=== PATIENT | male | born 1955 | race Caucasian/White ===

== ENCOUNTER 2016-04-29 15:05 | Inpatient (IN) ==
[2016-04-29] MEDS ORDERED: VANCOMYCIN 1 GM/NS 250 ML IV ONE (15:26)
--- NOTE | 2016-04-29 15:26 | PROVIDER DOCUMENTATION ---
HPI-General Adult - General Chief Complaint: Sores/Lesions Stated Complaint: bedsore/poss direct admit Time Seen by Provider: 04/29/16 15:11 Source: patient Allergies/Adverse Reactions: Patient Allergies Allergy/AdvReac Type Severity Reaction Status Date / Time morphine Allergy Unknown Verified 04/29/16 15:16 Home Medications: Hydrocodone/Acetaminophen [Cataumet 10-325 Tablet] 1 each PO TID 05/02/13 Methocarbamol [Robaxin-750] 750 mg PO TID 05/02/13 Trazodone [Desyrel] 100 mg PO QHS 04/05/14 Furosemide 1 tab PO DAILY 04/29/16 Potassium Chloride [Klor-Con 8] 1 tab PO DAILY 04/29/16 - History of Present Illness -Gen Adult Nature of Presenting Problems: patient is a 60 y/o M that presents to the ER per request of PCP for evaluation of bed sores for possible admission. 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 He is non-ambulatory. denies running fever/chills. Has drainage from site. He also has shortness of breath Location of Pain/Injury: reports: other (tailbone) Pain Radiation: reports: no radiation Quality of Pain: reports: dull Severity: reports: moderate Onset/Duration: reports: unsure Timing: reports: still present Context/Activities at Onset: reports: none Modifying Factors: improves with: nothing Associated Symptoms: reports: shortness of breath. denies: dizziness, EENT symptoms, fever/chills, genitourinary problems, nausea, vomiting Similar Symptoms Previously?: No Recently seen or treated by another doctor?: Yes Review of Systems - Adult - REVIEW OF SYSTEMS - ADULT Constitutional: denies: chills, fever Eyes: reports: no symptoms reported Ears, Nose, Mouth & Throat: reports: no symptoms reported Cardiovascular: denies: chest pain, edema, palpitations, syncope Respiratory: reports: shortness of breath. denies: cough, wheezing Gastrointestinal: denies: abdominal pain, diarrhea, nausea, vomiting Genitourinary: reports: no symptoms reported Musculoskeletal: denies: back pain, joint pain, neck pain Integumentary: reports: skin sores/ulcer. denies: rash Neurological: reports: no symptoms reported Psychiatric: reports: no symptoms reported Endocrine: reports: no symptoms reported Hematologic/Lymphatic: reports: no symptoms reported Allergic/Immunologic: reports: no symptoms reported All Other Systems: Reviewed and Negative Past History - Adult - PAST MEDICAL HISTORY-ADULT Review of Records: reports: Nursing Assessment Review, Medications Reviewed Cardiovascular: reports: CHF, HTN, ID Respiratory: reports: COPD Genitourinary: reports: other (indwelling nonsuprapubic cath) Musculoskeletal: reports: intervertebral disc disease, neck/back injury, other ( non ambulatory) Neurological: reports: Multiple Sclerosis, spinal cord/brain injury, other ( cervical issue) - PRIOR SURGERIES/PROCEDURES Surgical/Procedure History: reports: back/neck - IMMUNIZATION STATUS Childhood Immunizations: See Nurse Assessment Flu Vaccine: See Nurse Assessment - FAMILY HISTORY Family History: reviewed, not pertinent - SOCIAL HISTORY Smoking: non-smoker Living Situation: family Physical Exam-General - PHYSICAL EXAM-ADULT Exam Limited by: morbid obesity Initial Vital Signs Reviewed: Yes - CONSTITUTIONAL General Appearance: alert, no apparent distress, obese - EYES Eyes: PERRL/EOMI, pink conjunctivae - HEAD, EARS, NOSE, MOUTH & THROAT HENMT: normocephalic/atraumatic, moist mucous membranes, normal ENT inspection - NECK Neck: full range of motion, normal inspection - RESPIRATORY Respiratory: lungs clear, normal breath sounds, no respiratory distress, no accessory muscle use - CARDIOVASCULAR Cardiovascular: regular rate, rhythm, no edema, no murmur - GASTROINTESTINAL (ABDOMEN) Abdominal Exam: normal bowel sounds, non tender, soft, other (burt cath noted) - MUSCULOSKELETAL Back Exam: no vertebral tenderness, other (nephrectomy tube noted) Extremity: no pedal edema, normal capillary refill, pelvis stable - SKIN Integumentary: warm/dry, other (bedsore noted around nephrectomy opening, he has a large deep one to tailbone) - PSYCHIATRIC Psych/Mental Status: normal mood/affect, normal thought content, normal thought process, oriented x 3 Progress - PLAN OF CARE/RESULTS Progress/Plan/Lab Results: plan of care- labs , antibiotic Vital Signs Temp Pulse Resp BP Pulse Ox 04/29/16 15:11 97.3 F L 60 18 136/93 93 L morphine Allergy (Verified 04/29/16 15:16) Unknown Hydrocodone/Acetaminophen [Cataumet 10-325 Tablet] 1 each PO TID 05/02/13 Methocarbamol [Robaxin-750] 750 mg PO TID 05/02/13 Metoprolol [Lopressor] 25 mg PO BID #60 tablet 10/19/13 Trazodone [Desyrel] 100 mg PO QHS 04/05/14 Albuterol [Albuterol Neb] 2.5 mg INH [id number] PRN #0 neb 08/23/14 Cefuroxime Axetil [Ceftin] 500 mg PO BID #14 tablet 12/16/15 Furosemide 1 tab PO DAILY 04/29/16 Potassium Chloride [Klor-Con 8] 1 tab PO DAILY 04/29/16 Laboratory 04/29/16 04/29/16 04/29/16 15:40 15:35 15:35 WBC 9.12 RBC 5.40 Hgb 13.4 L Hct 44.4 MCV 82.2 MCH 24.8 L MCHC 30.2 L RDW Std Deviation 16.9 H Plt Count 290 MPV 11.2 H Immature Gran % (Auto) 0.2 Neut % (Auto) 74.9 Lymph % (Auto) 13.3 L Edmunds % (Auto) 7.9 Eos % (Auto) 3.5 Baso % (Auto) 0.2 Immature Gran # (Auto) 0.02 Neut # (Auto) 6.83 H Lymph # (Auto) 1.21 Edmunds # (Auto) 0.72 H Eos # (Auto) 0.32 Baso # (Auto) 0.02 Sodium Potassium Chloride Carbon Dioxide Anion Gap BUN Creatinine Estimated GFR/1.73 m2 BUN/Creatinine Ratio Glucose Calculated Osmolality Calcium Total Bilirubin AST ALT Alkaline Phosphatase Troponin T Wav-F-Ofkllvbmqwc Pept 631 H Total Protein Albumin Globulin Albumin/Globulin Ratio Plasma Lactate Urine Source CLEAN CATCH Urine Color YELLOW Urine Clarity SL. CLOUDY A Urine pH 7.0 Ur Specific Baxter 1.005 Urine Protein TRACE A Urine Ketones NEGATIVE Urine Blood 2+ A Urine Nitrite NEGATIVE Urine Bilirubin NEGATIVE Urine Urobilinogen NORMAL Urine Microscopic RBC 10-20 A Urine WBC 2+ A Urine Microscopic WBC TNTC A Ur Epithelial Cells <10 Urine Crystals NONE SEEN Urine Bacteria 2+ Urine Casts NONE SEEN Urine Yeast NONE SEEN Urine Glucose NEGATIVE 04/29/16 04/29/16 04/29/16 15:35 15:35 15:35 WBC RBC Hgb Hct MCV MCH MCHC RDW Std Deviation Plt Count MPV Immature Gran % (Auto) Neut % (Auto) Lymph % (Auto) Edmunds % (Auto) Eos % (Auto) Baso % (Auto) Immature Gran # (Auto) Neut # (Auto) Lymph # (Auto) Edmunds # (Auto) Eos # (Auto) Baso # (Auto) Sodium 142 Potassium 4.2 Chloride 105 Carbon Dioxide 28 Anion Gap 9 BUN 27 H Creatinine 1.7 H Estimated GFR/1.73 m2 42 BUN/Creatinine Ratio 16 Glucose 94 Calculated Osmolality 288 Calcium 8.6 L Total Bilirubin 0.40 AST 13 ALT 16 Alkaline Phosphatase 93 Troponin T 0.023 Eju-K-Xiaplfbyluh Pept Total Protein 8.2 Albumin 3.6 Globulin 5.0 Albumin/Globulin Ratio 1.0 Plasma Lactate 1.1 Urine Source Urine Color Urine Clarity Urine pH Ur Specific Baxter Urine Protein Urine Ketones Urine Blood Urine Nitrite Urine Bilirubin Urine Urobilinogen Urine Microscopic RBC Urine WBC Urine Microscopic WBC Ur Epithelial Cells Urine Crystals Urine Bacteria Urine Casts Urine Yeast Urine Glucose Orders Category Date Time Status BLOOD CULTURE [BLDCUL] Stat Lab 04/29/16 15:24 Ordered CBC WITH DIFF [HEME] Stat Lab 04/29/16 15:35 Completed COMPREHENSIVE METABOLIC PANEL [CHEM] Stat Lab 04/29/16 15:35 Completed LACTATE, PLASMA [CHEM] Stat Lab 04/29/16 15:35 Completed PRO B-NATRIURETIC PEPTIDE Stat Lab 04/29/16 15:35 Completed TROPONIN T Stat Lab 04/29/16 15:35 Completed UA [URINALYSIS PL W/POSS RFLX CULT] [URINALYSIS] Stat Lab 04/29/16 15:40 Completed URINE CULTURE [RM] Routine Lab 04/29/16 17:01 Ordered Levofloxacin 750 mg/D5w [Levaquin 750 mg/D5w] 150 ml Med 04/29/16 17:12 Active IV NOW Vancomycin 1 gm/Ns 250 ml Med 04/29/16 15:26 Discontinued IV NOW - CONSULTS/PCP/HOSPITALIST Notification #1 *Consult/PCP/Hospitalist*: ( hospice care consultant for hospitalist) Time Discussed: 17:24 Reason/Comments: decubitis ulcer, weakness, non-mobile Consult Disposition: Admit Departure - Departure Time of Disposition Order: 17:27 DIAGNOSIS: Weakness generalized, Renal insufficiency, mild Decubitus ulcer Qualifiers: Pressure ulcer location: buttock Pressure ulcer stage: unspecified pressure ulcer stage Laterality: unspecified laterality Qualified Code(s): L89.309 - Pressure ulcer of unspecified buttock, unspecified stage Urinary tract infection Qualifiers: Urinary tract infection type: acute cystitis Hematuria presence: with hematuria Qualified Code(s): N30.01 - Acute cystitis with hematuria Disposition: ADMITTED INPATIENT 09 Certified Medical Emergency: Emergent Condition: Stable Attestation - Scribe Verification/Attestation Scribe:: Miguel Erickson Acting as Scribe for:: Lane Lott Scribe documention review:: This chart was documented by a scribe and accurately reflects the service the provider performed and the decisions made by the provider.
[2016-04-29 16:12] LABS: MANUAL DIFF NEEDED? NO
[2016-04-29 16:17] LABS: BASO% 0.2 % (0.0-0.8); EOS# 0.32 X1000 (0.0-0.7); EOS% 3.5 % (0.0-10.0); HEMATOCRIT 44.4 % (42.0-52.0); HEMOGLOBIN 13.4 g/dL (14.0-18.0); IMM GRAN# 0.02 X1000 (0.0-0.04); IMM GRAN% 0.2 % (0.0-0.5); LYMPH# 1.21 X1000 (1.2-3.4); LYMPH% 13.3 % (20.5-51.1); MCH 24.8 PG (27-31); MCHC 30.2 g/dL (33-37); MCV 82.2 FL (81-99); MONO# 0.72 X1000 (0.11-0.59); MONO% 7.9 % (1.7-9.3); MPV 11.2 FL (7.4-10.4); NEUT% 74.9 % (42.2-75.2); PLT 290 X1000 (130-400)
[2016-04-29 16:25] LABS: URINE SOURCE CLEAN CATCH
[2016-04-29 16:39] LABS: ALBUMIN 3.6 g/dL (3.5-5.0); CALCIUM 8.6 mg/dL (8.8-10.2); POTASSIUM 4.2 mmol/L (3.5-5.1); TOTAL BILIRUBIN 0.4 mg/dL (0.20-1.00); TOTAL PROTEIN 8.2 g/dL (6.3-8.3)
[2016-04-29 16:39] LABS: BILIRUBIN URINE NEGATIVE (NEGATIVE); BLOOD URINE 2+ (NEGATIVE); CLARITY SL. CLOUDY (CLEAR); COLOR YELLOW; GLUCOSE URINE NEGATIVE (NEGATIVE); LEUKOCYTES URINE 2+ (NEGATIVE); NITRITE URINE NEGATIVE (NEGATIVE); PROTEIN URINE TRACE mg/dL (NEGATIVE); SP GRAVITY URINE 1.005; UROBILINOGEN URINE NORMAL
[2016-04-29 17:01] LABS: URINE CAST NONE SEEN /LPF; URINE CRYSTAL NONE SEEN /HPF; URINE CULTURE PL NEEDED? YES; URINE EPITHELIAL CELLS <10 /HPF (<10); URINE WBC TNTC /HPF (<10)
[2016-04-29] MEDS ORDERED: LEVAQUIN 750 MG/D5W 150 ML IV ONE (17:12)
[2016-04-29] MEDS ORDERED: VANCOMYCIN IV PER PHARMACY MISC SCH (19:00)
[2016-04-29] MEDS ORDERED: VANCOMYCIN 2,500 MG in NS 500 ML IV ONE (20:00)
[2016-04-29] MEDS ORDERED: VANCOMYCIN 1,500 MG in NS 250 ML IV ONE (20:00)
[2016-04-29] MEDS: NS 1,000 ML IV SCH (21:34)
[2016-04-29] MEDS: NORCO-10 PO SCH (21:38)
[2016-04-29] MEDS: DESYREL PO SCH (21:38)
[2016-04-29] MEDS: ROBAXIN PO SCH (21:42)
[2016-04-29] MEDS: LOPRESSOR PO SCH (21:45)
[2016-04-30] MEDS: NORCO-10 PO SCH ×3 (05:41→20:34)
[2016-04-30] MEDS: ROBAXIN PO SCH ×3 (05:41→20:34)
[2016-04-30 06:51] LABS: HEMATOCRIT 43.5 % (42.0-52.0); HEMOGLOBIN 12.8 g/dL (14.0-18.0); MCH 24.5 PG (27-31); MCHC 29.4 g/dL (33-37); MCV 83.2 FL (81-99); RBC 5.23 XMIL (4.7-6.1)
[2016-04-30 07:04] LABS: ALBUMIN 3.6 g/dL (3.5-5.0); CALCIUM 8.9 mg/dL (8.8-10.2); MAGNESIUM 2.2 mg/dL (1.5-2.7); POTASSIUM 4.4 mmol/L (3.5-5.1); TOTAL BILIRUBIN 0.5 mg/dL (0.20-1.00); TOTAL PROTEIN 7.9 g/dL (6.3-8.3)
[2016-04-30] MEDS ORDERED: NORCO-10 PO SCH (09:00)
[2016-04-30] MEDS ORDERED: ROBAXIN PO SCH (09:00)
[2016-04-30] MEDS: KLOR-CON PO SCH (10:03)
[2016-04-30] MEDS: LASIX PO SCH (10:03)
[2016-04-30] MEDS: LOVENOX SUBQ SCH (10:03)
[2016-04-30] MEDS: LOPRESSOR PO SCH ×2 (10:03→20:35)
[2016-04-30] MEDS: NS 1,000 ML IV SCH ×2 (10:04→20:35)
--- NOTE | 2016-04-30 11:39 | HISTORY AND PHYSICAL ---
PRIMARY CARE PHYSICIAN: Dr. Kulwant Oliveros. CHIEF COMPLAINT: Sacral decubitus. HISTORY OF PRESENT ILLNESS: This is a 60-year-old morbidly obese male who is well known to our service. He presented to the ER from Dr. Oliveros's for evaluation of sacral decubitus with possible cellulitis. He is paraplegic secondary to a spinal cord injury and he does have a long history of sacral decubitus ulcers. He is paraplegia secondary to a spinal cord injury. With that and his morbid obesity he does have a long history of sacral decubitus. He states over the last week he has had some serous and serosanguineous drainage from the sacral area. He denies any purulent drainage, any fever or chills or foul odor from the drainage. He states over the last few days he has had some increasing shortness of breath with no cough or increased in edema. 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 PAST SURGICAL HISTORY: 1. Neck surgery. 2. Attempt at suprapubic placement. 3. Left nephrostomy. ALLERGIES: Morphine which causes an unknown reaction. HOME MEDICATIONS: Trazodone 100 at bedtime, Lopressor 25 b.i.d., Robaxin 750 t.i.d., [place] 10/325 1 t.i.d., albuterol nebs 4 times a day, Klor-Con 8 1 tab daily, furosemide 1 tab daily. REVIEW OF SYSTEMS: A 14 point review of systems is discussed with patient with pertinent positives stated in HPI. He denied chest pain, palpitations, syncope, dizziness, nausea, vomiting, diarrhea, constipation, black or bloody vomitus, black or bloody stools, fever, chills. DIAGNOSTICS: Labs WBC is 9.12 with hemoglobin 13.4, hematocrit 44.4, platelets of 290,000. Sodium is 142, potassium 4.2, BUN 27, creatinine 1.7 with a glucose of 94. ProBNP of 631. Clean- catch urine reveals too numerous to count microscopic white blood cells, 10-20 microscopic red blood cells with 2+ bacteria. ASSESSMENT AND PLAN: 1. Sacral decubitus with cellulitis. 2. History of diastolic heart failure with EF of 55% in November 2014. 3. Paraplegia secondary to spinal cord injury. 4. Neurogenic bladder secondary to paraplegia, spinal cord injury. 5. Morbid obesity. 6. History of atrial fibrillation. 7. History of DVT. 8. Chronic kidney disease looks like with a creatinine that has been it looks like 1.9 to 3.2 over the last year. PLAN: 1. To be admitted to the hospital. We will obtain cultures if there is any drainage to the sacral decubitus. He was given Levaquin and vancomycin in the emergency room. We will continue these with pharmacy dosing of vancomycin due to his chronic kidney disease. We will identify and continue his home medications as appropriate. We will consult Wound Care for his sacral decubitus as well as his left nephrostomy site. 2. Of note the patient does have chronic Urinary tract infections with chronic hematuria. Last infections were with Proteus and Pseudomonas. Cultures were obtained in the emergency room. We will follow. The patient is most likely colonized. As long as he does not have a fever or elevated white count we will add no further antibiotics as he will already be on vancomycin and Levaquin. Further treatments pending hospital course. Dictated by MARY Singh for Benoit Cordoba MD
[2016-04-30] MEDS: DESYREL PO SCH (20:33)
[2016-04-30] MEDS: VANCOMYCIN 2,000 MG in NS 500 ML IV SCH (20:35)
[2016-05-01] MEDS: NORCO-10 PO SCH ×3 (04:51→21:01)
[2016-05-01] MEDS: ROBAXIN PO SCH ×3 (04:51→21:00)
--- NOTE | 2016-05-01 09:01 | PROGRESS NOTE ---
DATE: 04/30/2016 SUBJECTIVE: The patient denies any current new complaints. Denies any chest pain, palpitations. Denies any GI or issues. PHYSICAL: Vital Signs: Temperature 98.2, pulse 82, respiratory 18. BP 98/55 to 142/71. General: Patient well developed, well nourished. Currently in no respiratory distress. He is awake, alert, oriented. Neck: Supple. Abdomen: He is morbidly obese. Extremities: Patient does move extremities although he is extremely weak. LABS: CBC normal. CMP with a creatinine of 1.6, which is his chronic baseline. ASSESSMENT: 1. Morbid obesity. 2. Sacral decubitus with cellulitis. Culture still pending. 3. Known diastolic heart failure with an ejection fraction of 55% in November of 2014. 4. Paraplegia, secondary to spinal cord injury. 5. Neurogenic bladder secondary to the spinal cord injury. 6. Morbid obesity. 7. Chronic renal disease, he is currently at his baseline. 8. Presumed urinary tract infection. Patient has an indwelling catheter. Currently has too- [id number] white cells, and 10-20 microscopic RBCs. Cultures still pending.
[2016-05-01] MEDS: LOVENOX SUBQ SCH (09:40)
[2016-05-01] MEDS: LOPRESSOR PO SCH ×2 (09:40→21:00)
[2016-05-01] MEDS: KLOR-CON PO SCH (09:40)
[2016-05-01] MEDS: LASIX PO SCH (09:40)
[2016-05-01] MEDS: NS 1,000 ML IV SCH (13:01)
--- NOTE | 2016-05-01 16:52 | PROGRESS NOTE ---
DATE: 05/01/2016 SUBJECTIVE: The patient complains of a cough. He denies chest pain, palpitations, any shortness of breath, fever or chills, any GI or issues. OBJECTIVE: Vital Signs: Blood pressure is 134/71 with a heart rate of 64, respirations are 18, temperature is 98.5 degrees oral with room air saturations of 94%. Cardiovascular: Regular rate and rhythm. S1 and S2 are appreciated. Pulmonary: Breath sounds are diminished with no increased work of breathing noted. Gastrointestinal: Abdomen is soft, nontender, nondistended with bowel sounds in all 4 quadrants. Neurologic: He is alert and oriented x3. MICROBIOLOGY: Urine cultures from left nephrostomy, as well as voided, have revealed gram- negative rods. ASSESSMENT: 1. Morbid obesity. 2. Sacral decubitus with cellulitis. Culture still pending. 3. Known diastolic heart failure with ejection fraction of 55% in November 2014. 4. Paraplegia secondary to spinal cord injury. 5. Neurogenic bladder secondary to spinal cord injury. 6. Morbid obesity. 7. Chronic kidney disease, currently at baseline. 8. Presumed urinary tract infection. Cultures are growing gram-negative rods at present. Cultures are from voided, as well as left nephrostomy site. Of note, the patient does have known stones, and he does have a history of chronic Proteus, as well as Pseudomonas and Citrobacter urinary tract infections with our cultures going back to May 2013 with stones. Of course these are nidus for infection. This is to be expected. PLAN: We will continue with his current regimen. We will continue with vancomycin for antibiotic coverage. Once sensitivities return, then antibiotics may be changed as appropriate. Dictated by MARY Singh for Benoit Cordoba MD
[2016-05-01] MEDS: VANCOMYCIN 2,000 MG in NS 500 ML IV SCH (21:00)
[2016-05-01] MEDS: DESYREL PO SCH (21:00)
[2016-05-02] MEDS: NS 1,000 ML IV SCH ×2 (02:12→15:35)
[2016-05-02] MEDS: ROBAXIN PO SCH ×3 (05:03→20:50)
[2016-05-02] MEDS: NORCO-10 PO SCH ×3 (05:04→20:49)
[2016-05-02 06:03] LABS: HEMATOCRIT 39.7 % (42.0-52.0); HEMOGLOBIN 11.5 g/dL (14.0-18.0); MCH 24.2 PG (27-31); MCV 83.6 FL (81-99); MPV 10.8 FL (7.4-10.4); RBC 4.75 XMIL (4.7-6.1)
[2016-05-02 06:15] LABS: CALCIUM 8.2 mg/dL (8.8-10.2); POTASSIUM 3.8 mmol/L (3.5-5.1)
[2016-05-02] MEDS: LOPRESSOR PO SCH ×2 (08:46→20:50)
[2016-05-02] MEDS: LASIX PO SCH (08:46)
[2016-05-02] MEDS: KLOR-CON PO SCH (08:46)
[2016-05-02] MEDS: LOVENOX SUBQ SCH (08:46)
--- NOTE | 2016-05-02 11:29 | PROGRESS NOTE ---
DATE: 05/02/2016 SUBJECTIVE: The patient is without new complaints. Denies any chest pain or palpitations. OBJECTIVE: Vital Signs: Temperature 98 degrees, pulse 75, respiratory rate 18, BP 135/61, saturation 92% on room air. General: The patient is a morbidly obese male who currently is in no respiratory distress. He is lying in bed. He is awake, alert. Neck: Supple. CV: Regular rate. Chest: Clear, although distant secondary to his body habitus. Abdomen: Soft, morbidly obese. Extremities: He moves his upper extremities well. Has lower extremity paralysis. Labs: UA grows Proteus and Citrobacter, both of which he has chronic colonization. ASSESSMENT: 1. Urinalysis, growing Citrobacter and Proteus with chronic colonization. The patient is asymptomatic. He is afebrile. His white count is stable. Therefore, we will not treat. 2. Sacral decubitus. We will continue the vancomycin today. We will attempt to get home health, wound therapy, etc., set up in the morning. 3. Paraplegia secondary to spinal cord injury. 4. Morbid obesity. 5. History of deep venous thrombosis. 6. Chronic renal failure. Serum creatinine appears to be his baseline. Although it is slightly elevated today compared to yesterday, we will recheck in the morning.
[2016-05-02] MEDS ORDERED: BENADRYL PO ONE (17:49)
[2016-05-02] MEDS ORDERED: ZANTAC PO ONE (17:49)
[2016-05-02] MEDS: ZYRTEC PO SCH (18:03)
[2016-05-02] MEDS: DESYREL PO SCH (20:49)
[2016-05-03] MEDS: ALBUTEROL NEB INH PRN ×3 (03:29→19:25)
[2016-05-03] MEDS: NS 1,000 ML IV SCH ×3 (04:29→17:32)
[2016-05-03] MEDS: ROBAXIN PO SCH ×2 (05:03→13:16)
[2016-05-03] MEDS: NORCO-10 PO SCH ×5 (05:03→21:00)
[2016-05-03 06:10] LABS: HEMATOCRIT 38.8 % (42.0-52.0); MCH 24.4 PG (27-31); MCHC 28.4 g/dL (33-37); MCV 86.2 FL (81-99); MPV 10.8 FL (7.4-10.4); RBC 4.5 XMIL (4.7-6.1)
[2016-05-03 06:32] LABS: ALBUMIN 3.1 g/dL (3.5-5.0); CALCIUM 8.3 mg/dL (8.8-10.2); MAGNESIUM 2.1 mg/dL (1.5-2.7); POTASSIUM 4.3 mmol/L (3.5-5.1); TOTAL BILIRUBIN 0.5 mg/dL (0.20-1.00); TOTAL PROTEIN 6.8 g/dL (6.3-8.3)
--- NOTE | 2016-05-03 08:56 | PROGRESS NOTE ---
DATE: 05/03/2016 SUBJECTIVE: Patient without any complaints. He states that he was confused yesterday and he thinks it was because his oxygen level so low that it caused him to have confusion; however, his oxygen was checked at 91 and 92%. OBJECTIVE: Vital signs: Temperature 98 degrees, pulse 74, respiratory 16, BP 144/83. General: The patient is well-developed, obese male who is in no respiratory distress presently. He is awake, alert, oriented. Neck: Supple. CV: Regular rate. Chest: Relatively clear. Abdomen: Soft, obese. ASSESSMENT: 1. Sacral decubitus. This is chronic. We will consult wound therapy today. Patient has been on vancomycin. He has had no fevers. We will stop vancomycin at this point as his cultures have been negative. 2. 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 His urine this time grew both; therefore, the antibiotics have been stopped. 3. Morbid obesity. PLAN: Uncertain if the patient is capable of caring for herself at home. He certainly should consider rehab versus an LTAC facility. We will stop his antibiotics today, recheck his labs in the a.m., and follow. Hopefully home in the next 1-2 days.
[2016-05-03] MEDS: LOVENOX SUBQ SCH (09:20)
[2016-05-03] MEDS: LASIX PO SCH (09:20)
[2016-05-03] MEDS: LOPRESSOR PO SCH ×2 (09:20→21:31)
[2016-05-03] MEDS: KLOR-CON PO SCH (09:20)
[2016-05-03] MEDS: ZYRTEC PO SCH (09:20)
[2016-05-03] MEDS: DESYREL PO SCH (21:31)
[2016-05-03] MEDS: ROBITUSSIN-DM PO PRN (21:37)
[2016-05-04] MEDS: ROBAXIN PO SCH ×4 (00:50→20:14)
[2016-05-04] MEDS: ROBITUSSIN-DM PO PRN ×3 (01:46→16:35)
[2016-05-04] MEDS: ALBUTEROL NEB INH PRN ×2 (03:28→15:11)
[2016-05-04] MEDS: NORCO-10 PO SCH ×3 (05:09→20:14)
[2016-05-04 06:22] LABS: HEMATOCRIT 38.2 % (42.0-52.0); HEMOGLOBIN 11.2 g/dL (14.0-18.0); MCH 24.6 PG (27-31); MCHC 29.3 g/dL (33-37); MPV 11.3 FL (7.4-10.4); RBC 4.55 XMIL (4.7-6.1)
[2016-05-04 06:39] LABS: ALBUMIN 3.2 g/dL (3.5-5.0); CALCIUM 8.6 mg/dL (8.8-10.2); POTASSIUM 3.9 mmol/L (3.5-5.1); TOTAL BILIRUBIN 0.7 mg/dL (0.20-1.00); TOTAL PROTEIN 7.1 g/dL (6.3-8.3)
[2016-05-04] MEDS: NS 1,000 ML IV SCH ×3 (06:46→16:35)
[2016-05-04] MEDS: ZYRTEC PO SCH (08:52)
[2016-05-04] MEDS: LOVENOX SUBQ SCH (08:52)
[2016-05-04] MEDS: LOPRESSOR PO SCH ×2 (08:53→20:14)
[2016-05-04] MEDS: KLOR-CON PO SCH (08:53)
[2016-05-04] MEDS: LASIX PO SCH (08:53)
--- NOTE | 2016-05-04 17:46 | PROGRESS NOTE ---
DATE: 05/04/2016 SUBJECTIVE: Patient has no focal complaints. OBJECTIVE: Vital signs: Blood pressure 155/102, heart rate 66, respiratory rate 18, temperature 98.4 degrees. Cardiovascular: Regular rate and rhythm. Pulmonary: Bilateral breath sounds. Occasional rhonchi and wheezing. GI: Soft, nontender, nondistended. Bowel sounds are positive. LABORATORY DATA: White count is normal. Creatinine of 1.6. PROBLEM LIST: 1. Decubitus. Continue wound care. 2. Chronic colonization. Clinically there is no evidence of infection. 3. Morbid obesity. Continue to monitor. 4. Pulmonary: He did have some desaturation. He does sound rhonchorous. He has not had a chest x-ray since he has been here, so we will go ahead and evaluate that before we progress with taking him off anything. He is on Lasix. Repeat his labs tomorrow and follow. 5. Disposition: Attempted to place in LTAC, but appears to be stable. Continue to follow.
[2016-05-04] MEDS: DESYREL PO SCH (20:14)
[2016-05-05] MEDS: ROBAXIN PO SCH (05:14)
[2016-05-05] MEDS: NORCO-10 PO SCH ×2 (05:14→09:37)
[2016-05-05 06:16] LABS: HEMATOCRIT 42.1 % (42.0-52.0); HEMOGLOBIN 11.8 g/dL (14.0-18.0); MCH 23.9 PG (27-31); MCV 85.2 FL (81-99); MPV 11.2 FL (7.4-10.4); RBC 4.94 XMIL (4.7-6.1)
[2016-05-05] MEDS: ALBUTEROL NEB INH PRN (07:46)
[2016-05-05 07:55] LABS: CALCIUM 8.9 mg/dL (8.8-10.2); POTASSIUM 4.4 mmol/L (3.5-5.1)
--- NOTE | 2016-05-05 07:57 | Diag Imaging Result Document ---
PROCEDURE NAME: CHEST-PORTABLE - 05/04/2016 PORTABLE CHEST: COMPARISON: 06/19/2015. FINDINGS: There is cardiomegaly. There is limited detail at the bases due to artifact from skin fold. There is mild prominence of infrahilar markings on the left. There is a possible small right pleural effusion. There is no dense consolidation, gross vascular congestion, or pneumothorax identified. IMPRESSION: Cardiomegaly. Mild prominence of left infrahilar markings. Possible small right pleural effusion. These findings may relate to slight congestive heart failure.
[2016-05-05] MEDS: LOVENOX SUBQ SCH (08:16)
[2016-05-05] MEDS: LASIX PO SCH (08:16)
[2016-05-05] MEDS: LOPRESSOR PO SCH (08:16)
[2016-05-05] MEDS: ZYRTEC PO SCH (08:17)
[2016-05-05] MEDS: KLOR-CON PO SCH (08:17)
[2016-05-05] MEDS: ZOFRAN IV PRN (08:38)
[2016-05-05] MEDS: NEO-SYNEPHRINE 50 MG in NS 250 ML IV SCH ×4 (12:00→17:24)
[2016-05-05] MEDS ORDERED: NARCAN ONE (12:03)
[2016-05-05] MEDS ORDERED: NARCAN IV ONE (12:04)
[2016-05-05] MEDS ORDERED: QUELICIN ONE (12:10)
[2016-05-05] MEDS ORDERED: AMIDATE ONE ×2 (12:11→12:46)
[2016-05-05] MEDS ORDERED: AMIDATE IV ONE (12:15)
[2016-05-05] MEDS ORDERED: QUELICIN IV ONE (12:16)
[2016-05-05] MEDS ORDERED: ATIVAN IV ONE (12:25)
[2016-05-05] MEDS ORDERED: ATIVAN ONE (12:36)
[2016-05-05] MEDS ORDERED: DILAUDID IV PRN (12:55)
[2016-05-05] MEDS ORDERED: ATIVAN 20 MG in NS 190 ML IV SCH ×5 (13:00→15:06)
[2016-05-05] MEDS ORDERED: CARDIZEM 100 MG/NS 100 ML IV SCH (13:00)
[2016-05-05 13:03] LABS: BE 1.1 mmoll (-3.0-3.0); BLOOD TYPE ARTERIAL; METHB 1.3 % (0.0-1.5); O2(CT) 17.2 mL/dL (15.0-23.0); PO2(98.6) 91 mmHg (60-100); SAMPLE BLOOD; SAO2 97.5 % (95.0-100.0)
--- NOTE | 2016-05-05 13:08 | Diag Imaging Result Document ---
PROCEDURE NAME: CHEST-PORTABLE - 05/05/2016 AP PORTABLE CHEST: TIME: 1227 hours. FINDINGS: There is an NG tube which appears to pass below the diaphragm. There is an endotracheal tube with its tip approximately 3 cm above the valentin. Inspiration is somewhat suboptimal. There is atelectasis in the lingula. There is cardiomegaly and mild interstitial pulmonary edema. IMPRESSION: NG tube in stomach.
[2016-05-05 13:30] LABS: HEMATOCRIT 42.4 % (42.0-52.0); HEMOGLOBIN 11.9 g/dL (14.0-18.0); MCH 24.5 PG (27-31); MCHC 28.1 g/dL (33-37); MCV 87.4 FL (81-99); MPV 11.7 FL (7.4-10.4); RBC 4.85 XMIL (4.7-6.1)
[2016-05-05 13:34] LABS: CALCIUM 8.9 mg/dL (8.8-10.2); POTASSIUM 4.7 mmol/L (3.5-5.1)
--- NOTE | 2016-05-05 13:35 | EKG Report ---
Test Performed on : 05/05/2016 12:46:30 PM Test Reason : a-vib Blood Pressure : / mmHG Vent. Rate : 105 BPM Atrial Rate : 120 BPM P-R Int : 000 ms QRS Dur : 100 ms QT Int : 330 ms P-R-T Axes : 000 101 027 degrees QTc Int : 436 ms Atrial fibrillation. with rapid ventricular response. Possible Right ventricular hypertrophy Abnormal ECG When compared with ECG of 11-JUN-2015 08:16, Nonspecific T wave abnormality, improved in Inferior leads Nonspecific T wave abnormality, improved in Anterior leads Confirmed by Noel Malik MD ([id number]) on 05/26/2016 9:59:05 PM
[2016-05-05 13:37] LABS: PCO2(98.6) 103 mmHg (35-45); pH(98.6) 7.12 (7.35-7.45)
[2016-05-05 13:38] LABS: ALLEN TEST YES; DRAW SITE R RADIAL; MODALITY AMBU BAG
[2016-05-05] MEDS: LASIX IV SCH (13:52)
[2016-05-05 14:39] LABS: BLOOD TYPE ARTERIAL; DRAW SITE L RADIAL; METHB 1.1 % (0.0-1.5); O2(CT) 16.6 mL/dL (15.0-23.0); PO2(98.6) 124 mmHg (60-100); SAMPLE BLOOD; SAO2 99.4 % (95.0-100.0); SRATE 14 BPM; THB 12.2 g/dL (11.5-17.4); TVOL 650 mL; pH(98.6) 7.31 (7.35-7.45)
[2016-05-05 14:43] LABS: ALLEN TEST YES; MODALITY VENTILATOR; PCO2(98.6) 61 mmHg (35-45)
[2016-05-05] MEDS: SODIUM CHLORIDE 0.9% INJ SCH (14:52)
[2016-05-05] MEDS: PROTONIX IV SCH (14:52)
--- NOTE | 2016-05-05 14:54 | PROGRESS NOTE ---
DATE: 05/05/2016 TIME SPENT: This is a critical care note, over an hour. SUBJECTIVE: Called to see patient. CAT call was called right before noon, at 11:45. The patient was unresponsive. Also, breathing very shallow. Also just unresponsive essentially and essentially apneic. Blood sugars around 160, blood pressure 140. His initial O2 saturations were 60%. He was placed on a monitor. Was found to be in atrial fibrillation with rapid ventricular response. At least tachycardic in the 1 teens to 120s which no history per se of atrial fibrillation. He was bagged, mechanically ventilated, but did not respond. We gave him 0.8 Narcan. Did not have much response. He did open his eyes and would track, but he would not follow commands and he was not breathing regularly. In order to protect his airway and because of his hypoxic and hypercapnic respiratory failure, we went ahead and intubated him. Note is recorded separately. Patient had to be put on fluids and subsequently stabilized. We had to start Sarbjit-Synephrine to maintain blood pressure because his blood pressure dropped into the 80s systolic. He was in atrial fibrillation with rapid ventricular response, so we started low-dose Cardizem as well. PROBLEM LIST: 1. Acute hypoxic hypercapnic respiratory failure secondary to pulmonary edema versus other. Patient clinically not feel he had flash pulmonary edema. He may have had a hypercapnic event related to narcotics and respiratory failure. We will continue to follow. 2. Atrial fibrillation with rapid ventricular response. Continue Cardizem and monitor. I think he will need long-term anticoagulation and we will establish that prior to discharge. 3. Decubitus ulcer. We will continue wound care and follow. 4. Chronic urinary tract infection colonization. We will continue to monitor. Again, greater than an hour critical care time associated with acute hypercapnic and hypoxic respiratory failure. He is now on a mechanical ventilator. Will adjust accordingly.
[2016-05-05] MEDS: DIPRIVAN 1% 100 ML IV SCH ×3 (15:10→23:00)
--- NOTE | 2016-05-05 15:12 | OPERATIVE NOTE ---
PROCEDURE DATE: 05/05/2016 PROCEDURE: Tracheal intubation. INDICATION: Respiratory failure. Altered mental status. The patient developed apnea. He did improve with bag ventilation. However, his mental status was very poor. He was not breathing regularly on his own. He was not responding to commands. He was intubated for airway protection. DESCRIPTION OF PROCEDURE: I initially tried to intubate without sedation but patient was struggling, so he was given 40 mg of etomidate and 100 mg of succinylcholine. Very difficult to intubate because his neck could not be hyperextended due to previous, I believe, cervical neck fusion. We were able pass the laryngoscope and visualize the edge of his vocal cords. An ET tube 7.5 was passed and good color change. Condensation in the tube. Bilateral breath sounds confirmed. Chest x-ray confirmed ET tube passed the clavicle and above valentin. Dr. Servin was present because there was a concern over complication with the procedure.
--- NOTE | 2016-05-05 17:10 | Diag Imaging Result Document ---
PROCEDURE NAME: HEAD W/O CONTRAST - 05/05/2016 CT HEAD WITHOUT CONTRAST: COMPARISON: None available. FINDINGS: There is patchy low attenuation in the periventricular and subcortical white matter suggesting [id number] microangiopathy. There is no definite acute infarct given the limited sensitivity of CT versus MRI. There is no discrete intracranial mass, mass effect, or intracranial hemorrhage. There is an air-fluid level in the right maxillary sinus, likely related to intubation. Surrounding soft tissues and bony structures are essentially unremarkable, otherwise. IMPRESSION: Mild to moderate chronic-appearing white matter changes as described, but no evidence of acute intracranial pathology.
[2016-05-05] MEDS: CARDIZEM NG SCH ×2 (17:25→22:24)
[2016-05-05] MEDS ORDERED: ASPIRIN PO STA (18:47)
--- NOTE | 2016-05-05 19:05 | EKG Report ---
Test Performed on : 05/05/2016 6:53:08 PM Test Reason : nstemi Blood Pressure : / mmHG Vent. Rate : 063 BPM Atrial Rate : 141 BPM P-R Int : 000 ms QRS Dur : 088 ms QT Int : 394 ms P-R-T Axes : 000 090 077 degrees QTc Int : 403 ms Atrial fibrillation. Rightward axis Abnormal ECG When compared with ECG of 05-MAY-2016 12:46, (Unconfirmed) Vent. rate has decreased BY 42 BPM Non-specific change in ST segment in Inferior leads Confirmed by Noel Malik MD ([id number]) on 05/26/2016 9:58:19 PM
[2016-05-05] MEDS: XOPENEX NEB INH PRN ×2 (20:42→23:24)
[2016-05-06] MEDS: LASIX IV SCH ×2 (00:55→15:21)
[2016-05-06] MEDS: NEO-SYNEPHRINE 50 MG in NS 250 ML IV SCH ×2 (00:55→01:24)
[2016-05-06] MEDS: DIPRIVAN 1% 100 ML IV SCH ×9 (03:00→21:29)
[2016-05-06] MEDS: XOPENEX NEB INH PRN ×3 (03:45→15:41)
[2016-05-06] MEDS: CARDIZEM NG SCH ×2 (04:14→09:48)
[2016-05-06 05:48] LABS: BE 8.5 mmoll (-3.0-3.0); BLOOD TYPE ARTERIAL; DRAW SITE R RADIAL; METHB 0.9 % (0.0-1.5); O2(CT) 15.4 mL/dL (15.0-23.0); PCO2(98.6) 38 mmHg (35-45); PO2(98.6) 115 mmHg (60-100); SAMPLE BLOOD; SAO2 99.3 % (95.0-100.0); SRATE 16 BPM; THB 11.2 g/dL (11.5-17.4); TVOL 650 mL; pH(98.6) 7.53 (7.35-7.45)
[2016-05-06 05:51] LABS: ALLEN TEST YES; MODALITY VENTILATOR
[2016-05-06 06:21] LABS: HEMATOCRIT 36.4 % (42.0-52.0); HEMOGLOBIN 10.4 g/dL (14.0-18.0); MCH 23.5 PG (27-31); MCHC 28.6 g/dL (33-37); MCV 82.2 FL (81-99); MPV 11.3 FL (7.4-10.4); RBC 4.43 XMIL (4.7-6.1)
[2016-05-06 06:26] LABS: CALCIUM 8.6 mg/dL (8.8-10.2); POTASSIUM 3.8 mmol/L (3.5-5.1)
[2016-05-06] MEDS ORDERED: NEO-SYNEPHRINE 50 MG in NS 250 ML IV PRN (06:37)
--- NOTE | 2016-05-06 09:17 | Diag Imaging Result Document ---
PROCEDURE NAME: CHEST-PORTABLE - 05/06/2016 AP RADIOGRAPH OF THE CHEST: COMPARISON: 05/05/2016. FINDINGS: ET tube is in stable position. There is an NG tube that projects below the diaphragm and is assumed to be in the stomach. There is probably a small right pleural effusion with adjacent atelectasis and/or infiltrate. Atelectasis at the left lung base appears to have improved. No new consolidations are identified otherwise. Cardiac silhouette is stable. IMPRESSION: Suggestion of a small effusion at the right lung base with adjacent atelectasis and/or infiltrate and improvement in atelectasis at the left lung base.
[2016-05-06 09:46] LABS: BE 9.8 mmoll (-3.0-3.0); BLOOD TYPE ARTERIAL; DRAW SITE L RADIAL; METHB 1.1 % (0.0-1.5); PCO2(98.6) 46 mmHg (35-45); PO2(98.6) 90 mmHg (60-100); SAMPLE BLOOD; SAO2 99.1 % (95.0-100.0); SRATE 12 BPM; THB 8.8 g/dL (11.5-17.4); TVOL 650 mL; pH(98.6) 7.48 (7.35-7.45)
[2016-05-06 09:51] LABS: ALLEN TEST YES; MODALITY VENTILATOR
[2016-05-06] MEDS: LOVENOX SUBQ SCH (09:55)
[2016-05-06] MEDS: HEPARIN 25,000 UNITS/D5W 250 ML IV SCH ×3 (11:04→21:30)
[2016-05-06] MEDS ORDERED: DOPAMINE 800 MG/D5W (PARKWAY ONLY!) 250 ML IV SCH (11:30)
--- NOTE | 2016-05-06 12:00 | EKG Report ---
Test Performed on : 05/06/2016 11:23:30 AM Test Reason : bradycardia Blood Pressure : / mmHG Vent. Rate : 049 BPM Atrial Rate : 044 BPM P-R Int : 000 ms QRS Dur : 092 ms QT Int : 530 ms P-R-T Axes : 000 089 -71 degrees QTc Int : 478 ms Atrial fibrillation. with slow ventricular response. ST & T wave abnormality, consider anterior ischemia Prolonged QT Abnormal ECG When compared with ECG of 05-MAY-2016 18:53, (Unconfirmed) Non-specific change in ST segment in Inferior leads T wave inversion now evident in Inferior leads T wave inversion more evident in Anterior leads QT has lengthened Confirmed by Noel Malik MD ([id number]) on 05/26/2016 9:56:55 PM
--- NOTE | 2016-05-06 12:18 | PROGRESS NOTE ---
DATE: 05/06/2016 SUBJECTIVE: The patient is intubated and sedated. OBJECTIVE: Vital signs: Blood pressure 105/56, heart rate is 64, respiratory rate 12, temperature 97.9 degrees, 96% on 35%. Cardiovascular: Regular rate and rhythm. Pulmonary: Bilateral breath sounds. Clear to auscultation. Rales at the bases. GI: Soft, nontender, nondistended. Bowel sounds are positive. LABORATORY DATA: Hemoglobin and hematocrit 10 and 36. Chemistries: Creatinine 2.1. Troponin peak was 0.116 with a normal CK so MB was not run. Blood gas this morning, pH 7.48, pCO2 46, PaO2 of 90; that is on 40%. Chest x-ray still shows interstitial edema, right pleural effusion. Head CT was unremarkable. EKG this morning because he had an episode of bradycardia shows slow atrial fibrillation or atrial fibrillation with slow response and T-wave inversions now in V1 through V3 which were not present previously. PROBLEM LIST: 1. Acute respiratory failure secondary to acute hypercapnia, possibly from a primary cardiac event or primary thromboembolic event. He is on the vent. Weaning O2 nicely. CO2 has also corrected. We will pursue daily vent weaning protocols. Pulmonary has been consulted; awaiting recommendations. 2. Left lower extremity deep vein thrombosis. He has had a history of DVT in the past but it has been over 2 years and he is not currently on any anticoagulation. That may be related to bleeding issues; it is unclear at this point. But with his high risk, sedentary lifestyle related to his partial paraplegia, I think long-term anticoagulation is recommended and I am also concerned he may have had a PE. Prohibitive from getting a CTA at this time because of renal dysfunction. Will get a V/Q scan when he is stable. 3. Elevated cardiac enzymes with initially atrial fibrillation with rapid ventricular response. Now he is developing bradycardia despite no medications. We had him on Cardizem briefly yesterday but now he became more bradycardic. He is on propofol and it may be affecting heart rate and blood pressure. However, pursuing echocardiogram, repeating his cardiac enzymes, and awaiting cardiology recommendations. He is being anticoagulated. I think he needs to be on daily aspirin at this point. Elevation in troponin may simply be due to possible VTE but now with T-wave inversions, concern for other processes. So again, we are waiting cardiology evaluation. I am going to continue diuresis because he does have interstitial edema. 4. Chronic renal failure. Appears to be stable. Will monitor with renal dysfunction. Strict I's and O's. 5. Urinary tract infection. He has a chronic indwelling nephrostomy from kidney stones. He is not amenable to surgery at this point, so we are going to continue monitor. At this point there is no evidence of infection. DISPOSITION: Pending his multiple issues. CRITICAL CARE TIME: Greater than 30 minute critical care time for respiratory failure, atrial fibrillation, hypotension. We are being able to take him off blood pressure medicines at this point.
--- NOTE | 2016-05-06 14:39 | EKG Report ---
Test Performed on : 05/06/2016 1:28:28 PM Test Reason : NSTEMI Blood Pressure : / mmHG Vent. Rate : 072 BPM Atrial Rate : 220 BPM P-R Int : 000 ms QRS Dur : 088 ms QT Int : 432 ms P-R-T Axes : 000 084 -81 degrees QTc Int : [address] & T wave abnormality, consider inferior ischemia ST & T wave abnormality, consider anterior ischemia Prolonged QT Abnormal ECG When compared with ECG of 06-MAY-2016 11:23, (Unconfirmed) No significant change was found Confirmed by Noel Malik MD ([id number]) on 05/26/2016 9:56:21 PM
--- NOTE | 2016-05-06 14:50 | CONSULTATION ---
DATE OF CONSULTATION: 05/06/2016 INDICATION: Elevated cardiac enzymes and abnormal EKG. HISTORY OF PRESENT ILLNESS: Mr. Jaffe is a 60-year-old morbidly obese white male. He has had multiple admissions to the hospital previously. He presented to the ER on the from his primary care physician's office for evaluation of sacral decubitus with possible cellulitis. The patient is paraplegic with previous spinal cord injury and has a long history of sacral decubital ulcers. Apparently the patient had issues yesterday on the floor where he went nonresponsive and had some issues with hypotension. He had a CAT call and was ultimately intubated. He was brought over to the ICU and was placed on Sarbjit-Synephrine. Since that time, he has had cardiac enzymes checked as well as EKGs. His cardiac enzymes are mildly elevated. The patient is currently sedated and intubated. He is not responsive to any physical stimulation. PAST MEDICAL HISTORY: 1. Significant for hypertension. 2. Chronic atrial fibrillation. 3. DVT. 4. COPD. 5. History of diastolic heart failure. 6. Chronic kidney disease. Baseline creatinine seems to be in the high ones to low 2s. 7. 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 8. Neurogenic bladder. 9. History of nephrolithiasis. SOCIAL HISTORY: No current tobacco or alcohol use. FAMILY HISTORY: Unable to be obtained secondary to the patient's current intubated and sedated status. REVIEW OF SYSTEMS: Unable to be obtained secondary to patient's current intubated status. PHYSICAL EXAMINATION: He is afebrile. Heart rates seem to be in the 60s. His most recent blood pressure is 91/57. His systolics seem to be primarily in the 90s to 110s. His O2 saturation is 94%. Heart rate 60s to 70s. General: No acute distress. Again he is sedated. HEENT: Oropharynx is moist. Poor dentition. Eye examination shows pink conjunctivae, white sclerae. Neck: Examination shows no obvious thyromegaly or thyroid tenderness. Cardiovascular: He sounds to be in a regular rate and rhythm. He has no obvious murmurs. He has no S3. No lower extremity edema. Chest: Clear to auscultation bilaterally. He has no increased work of breathing. Mechanical breath sounds are heard throughout. Abdomen: Soft, nontender, nondistended. No obvious organomegaly. Skin Exam: Warm and dry throughout. No obvious rashes. Patient could not be turned presently. Psychiatric and Neurologic: Unable to be performed secondary to the patient's current intubated status. PERTINENT DATA: CT the head performed yesterday shows mild to moderate chronic appearing white matter changes. No evidence of acute intracranial pathology. His chest x-ray today showed suggestion of a small effusion at the right lung base with adjacent atelectasis and/or infiltrate. His laboratory data shows white count is 6, hematocrit 36.4, platelet count 245,000. His ABG shows pH 7.4, a pCO2 46, PO2 of 90. That is on an FiO2 of 40%. His sodium is 145, potassium 3.8, BUN 25, creatinine 2.1. Notably on the , he had a BUN and creatinine of 17 and 1.6. He did have cardiac enzymes that were checked yesterday. Peak of 0.116. CKs are normal. He had EKGs performed. Initial on the at 18:53 shows atrial fibrillation, rate of 63 beats per minute. No signs of ischemic changes or acute infarct. Subsequent EKG today at 11:23 shows what appears to be atrial fibrillation and he has somewhat symmetric T-wave inversions noted in the V2 and V3 concerning for possible ischemia. ASSESSMENT: 1. Paraplegia with sacral decubitus ulcers. 2. Suggestion of a non-ST elevation [place] with abnormal EKG suggestive of possible ischemic focus. 3. Chronic kidney disease. 4. Morbid obesity. PLAN: We will review the patient's echocardiogram to evaluate for possible wall motion abnormalities. Notably this patient has had extremely difficult echoes in the past on multiple occasions secondary to his morbid obesity. Not entirely certain that study will be significantly helpful but we will review regardless. I agree with heparin as currently being administered. We will initiate aspirin if not already on. The patient is somewhat hypotensive presently.
[2016-05-06] MEDS: PROTONIX IV SCH (15:21)
[2016-05-06] MEDS: SODIUM CHLORIDE 0.9% INJ SCH (15:21)
--- NOTE | 2016-05-06 16:47 | ECHO REPORT ---
ORDER DATE: 05/06/2016 Technically suboptimal study. This is a 2D echocardiogram. Very poor parasternal windows. Measurements could not accurately be obtained. MEASUREMENTS: 1. Aortic valve leaflets not well visualized. Pulmonic valve not well visualized. Mitral valve was normal. Tricuspid valve was normal. 2. Normal left ventricular cavity size. Estimated ejection fraction of 55%-60%. Doppler studies revealed peak velocity across the aortic valve less than 2 m/sec. There is no aortic stenosis or regurgitation. 3. There is trace mitral regurgitation, mild tricuspid regurgitation. 4. Peak velocity across the tricuspid valve was 3 m/sec. Pulmonary artery systolic pressure of 46 mmHg. 5. There is no pericardial effusion. No obvious intracardiac mass or thrombus seen. Technically suboptimal study. Very poor acoustic.
[2016-05-06] MEDS ORDERED: HEPARIN IV ONE (19:00)
[2016-05-07] MEDS: DIPRIVAN 1% 100 ML IV SCH ×4 (00:12→06:43)
[2016-05-07] MEDS: LASIX IV SCH ×2 (01:05→13:23)
[2016-05-07] MEDS: XOPENEX NEB INH PRN ×6 (02:35→23:34)
--- NOTE | 2016-05-07 04:14 | CONSULTATION ---
DATE OF CONSULTATION: 05/06/2016 ATTENDING PHYSICIAN: Dr. Poole. REASON FOR CONSULTATION: Respiratory failure. CHIEF COMPLAINT: Unresponsiveness. HISTORY OF PRESENTING ILLNESS: Please note that most of the history is obtained from the records as well as from ICU nurse, since patient is intubated and sedated. Mr. Jaffe is a 60-year-old, obese white male with past medical history of hypertension, atrial fibrillation, DVT history of paraplegia secondary to previous spinal cord injury, neurogenic bladder, chronic kidney disease and kidney stones, who was admitted on 04/29/2015 for possible cellulitis and infection of the sacral decubitus. Patient apparently was on the floor, receiving antibiotics. He was noted to be unresponsive. A stat ABG was performed, and the patient was noted to have hypercapnic respiratory failure. He was emergently intubated and placed in the ICU. He was also noted to be hypotensive and has been Sarbjit-Synephrine since then. He is currently on assist control with tidal volume of 600, respiratory rate of 12, PEEP of 5, at 40% FiO2 on propofol drip. History is negative for any fevers. The rest of the review of systems is not available since patient is intubated. PAST MEDICAL HISTORY: As per the HPI. SOCIAL HISTORY: No history of smoking or alcohol use. Family history unable to obtain since patient is intubated. PHYSICAL EXAMINATION: Blood pressure noted to be 91/57. Oxygen saturation is noted to be 94% on 40% FiO2. Heart rate is in the 70s, temperature afebrile.General: Patient is in mild respiratory distress. Heart: S1, S2 heard. Lungs: Clear air entry bilaterally. Abdomen: Soft. Extremities: No edema. EMERGENCY PHYSICIAN: Unable to assess since patient is intubated. LABS: His last ABG showed pH of 7.4, pCO2 of 46, PO2 of 490. Sodium 145, potassium 3.8. Chloride 107, bicarb 29, BUN 25, creatinine 2.1. Troponin is 0.116. CBC: White count is 6.08, hemoglobin is 10.4, hematocrit 36.4, platelet count is 245,000. Urine analysis from 04/29/2016 showed Citrobacter koseri and Proteus mirabilis. Sputum culture has been negative so far. Blood cultures have been negative so far. MEDICATIONS: 1. Aspirin 2. Phenylephrine 3. Lasix 4. Dilaudid 5. Xopenex 6. Protonix. DIAGNOSTIC DATA: Chest x-ray which was performed on 05/06/2016 showed ET tube in stable position. Small effusion in the right lung base with adjacent atelectasis noted. Initially ABG showed pH of 7.12, pCO2 103, PO2 91, bicarb is 25, on non-rebreather mask. ASSESSMENT: 1. Acute hypercapnic respiratory failure. Etiology unclear. 2. Ventilator dependency. 3. Sepsis. 4. Bac-[id number] myocardial infarction. 5. Infected sacral decubitus. PLAN: 1. Acute hypercapnic respiratory failure. I reviewed the repeat ABG after intubation. The pH has been within normal limits. Continue current managed assist control. Recommend CPAP trial in the morning after weaning off sedation. We will plan for extubation if patient is able to perform CPAP trial. 2. Ventilator dependency. Plan as above. 3. Sepsis. Continue broad-spectrum antibiotics. Follow up cultures. 4. NSTEMI. Management as per Cardiology. Echocardiogram has been ordered. 5. Infected sacral decubitus. Continue antibiotic management as per primary care. Thank you for allowing me to take care of the patient. We will continue to monitor patient in ICU while he is intubated.
[2016-05-07 06:00] LABS: BE 8.7 mmoll (-3.0-3.0); BLOOD TYPE ARTERIAL; METHB 1.2 % (0.0-1.5); O2(CT) 15.4 mL/dL (15.0-23.0); PO2(98.6) 79 mmHg (60-100); SAMPLE BLOOD; SAO2 97.1 % (95.0-100.0); SRATE 12 BPM; THB 11.6 g/dL (11.5-17.4); TVOL 600 mL; pH(98.6) 7.43 (7.35-7.45)
[2016-05-07 06:07] LABS: DRAW SITE L RADIAL
[2016-05-07 06:08] LABS: ALLEN TEST YES; MODALITY VENTILATOR; PCO2(98.6) 52 mmHg (35-45)
--- NOTE | 2016-05-07 06:23 | EKG Report ---
Test Performed on : 05/07/2016 05:40:48 AM Test Reason : NSTEMI Blood Pressure : / mmHG Vent. Rate : 082 BPM Atrial Rate : 312 BPM P-R Int : 000 ms QRS Dur : 094 ms QT Int : 460 ms P-R-T Axes : 000 065 -75 degrees QTc Int : [address] & T wave abnormality, consider inferior ischemia ST & T wave abnormality, consider anterolateral ischemia Prolonged QT Abnormal ECG When compared with ECG of 06-MAY-2016 13:28, (Unconfirmed) QT has lengthened Confirmed by Noel Malik MD ([id number]) on 05/26/2016 9:53:28 PM
[2016-05-07 06:25] LABS: HEMATOCRIT 37.5 % (42.0-52.0); HEMOGLOBIN 11.1 g/dL (14.0-18.0); MCH 24.2 PG (27-31); MCHC 29.6 g/dL (33-37); MCV 81.9 FL (81-99); MPV 11.6 FL (7.4-10.4); RBC 4.58 XMIL (4.7-6.1)
[2016-05-07 06:36] LABS: CALCIUM 8.6 mg/dL (8.8-10.2); POTASSIUM 3.1 mmol/L (3.5-5.1)
[2016-05-07] MEDS: HEPARIN 25,000 UNITS/D5W 250 ML IV SCH ×3 (06:43→17:44)
--- NOTE | 2016-05-07 07:12 | Extremity Venous Study ---
PROCEDURE NAME: Venous U/S Bilateral Legs - 05/06/2016 BILATERAL LOWER EXTREMITY VENOUS DOPPLER: COMPARISON: None available. FINDINGS: There is no discrete filling defect involving the right lower extremity deep venous system. There is normal Doppler flow and compressibility involving the deep venous system on the right. There is no discrete filling defects identified in the left common femoral vein. Thrombus is seen in a posterior tibial vein and peroneal vein on the left. The popliteal vein appears to be patent on the left. There appears to be thrombus in the proximal and mid superficial femoral vein on the left. There also appears to be thrombus in the left lesser saphenous vein distally. IMPRESSION: 1. Evidence of deep venous thrombosis in the left superficial femoral vein, posterior tibial vein, and peroneal vein. 2. Evidence of superficial thrombosis in the distal lesser saphenous vein on the left. 3. No evidence of deep venous thrombosis on the right.
--- NOTE | 2016-05-07 07:25 | Diag Imaging Result Document ---
PROCEDURE NAME: CHEST-PORTABLE - 05/07/2016 PORTABLE CHEST: COMPARISON: 05/06/2016. FINDINGS: The endotracheal tube remains in good position. A nasogastric tube overlies the esophagus and stomach. The heart remains enlarged. There is a small right pleural effusion. Increased markings in the lung bases are similar to the prior exam. The upper and mid lungs remain clear. IMPRESSION: Stable chest.
[2016-05-07 08:48] LABS: BE 5.9 mmoll (-3.0-3.0); BLOOD TYPE ARTERIAL; DRAW SITE L BRACHIAL; METHB 1.3 % (0.0-1.5); O2(CT) 16.6 mL/dL (15.0-23.0); PO2(98.6) 75 mmHg (60-100); SAMPLE BLOOD; SAO2 95.8 % (95.0-100.0); THB 12.7 g/dL (11.5-17.4); pH(98.6) 7.32 (7.35-7.45)
[2016-05-07 08:53] LABS: MODALITY VENTILATOR
[2016-05-07 08:54] LABS: ALLEN TEST YES
[2016-05-07 08:57] LABS: PCO2(98.6) 66 mmHg (35-45)
[2016-05-07] MEDS ORDERED: LEVAQUIN 750 MG/D5W 150 ML IV SCH (11:15)
[2016-05-07] MEDS ORDERED: LEVAQUIN 750 MG in NS 150 ML IV SCH (11:15)
[2016-05-07] MEDS: ASPIRIN PO SCH (11:20)
[2016-05-07] MEDS: MAXIPIME 2 GM/NS 100 ML IV SCH (12:13)
[2016-05-07] MEDS ORDERED: HALDOL IV PRN (12:46)
--- NOTE | 2016-05-07 13:16 | EKG Report ---
Test Performed on : 05/07/2016 1:01:40 PM Test Reason : irregular rhythm Blood Pressure : / mmHG Vent. Rate : 104 BPM Atrial Rate : 102 BPM P-R Int : 000 ms QRS Dur : 090 ms QT Int : 328 ms P-R-T Axes : 000 087 -81 degrees QTc Int : 431 ms Atrial fibrillation. with rapid ventricular response. ST & T wave abnormality, consider inferior ischemia ST & T wave abnormality, consider anterior ischemia Abnormal ECG When compared with ECG of 07-MAY-2016 05:40, (Unconfirmed) QT has shortened Confirmed by Noel Malik MD ([id number]) on 05/26/2016 9:53:03 PM
[2016-05-07] MEDS: ATIVAN IV PRN ×2 (13:50→19:50)
[2016-05-07] MEDS: PROTONIX IV SCH (13:51)
--- NOTE | 2016-05-07 14:59 | PROGRESS NOTE ---
DATE: 05/07/2016 CHIEF COMPLAINT: Shortness of breath, chest discomfort. SUBJECTIVE: Mr. Jaffe was extubated this morning. He has been complaining of some chest discomfort. His EKGs for the past 24 hours have shown T-wave inversion in the precordial leads, V1, V2, V3, with less impressive changes in the more lateral precordial leads. He had slight elevation of troponin at the time of initial presentation. His troponin went up to 0.108 and 0.116 later. They have dropped to 0.066. His CPK was all negative throughout four different samples. His proBNP level was 631 at the time of initial presentation over a week ago, about four times baseline. His renal function has deteriorated. His creatinine is about 2.0; maximum was 2.2 but is coming down to 2.0. The patient at this time is feeling very weak. He has had intermittent chest discomfort. OBJECTIVE: Vital signs: Blood pressure is 149/70, temperature of 98.9, pulse 109, respirations 28. General: He is awake, follows commands. HEENT: Unremarkable. Chest: Chest is relatively clear to auscultation and percussion. Heart sounds are irregularly irregular without gallop or murmur. Abdomen: Obese, nontender. Extremities: Extremities show good pulses. No edema. Neurological exam: He has profound weakness in the legs and also weakness in both upper extremities. ADDITIONAL BLOOD WORK: Sodium today is 142, potassium 3.1. BUN is 28. His white count is 6310, hemoglobin 11.1. His chest x-ray today was reported as showing enlargement of the heart, increased marking at the lung amrtinez. Upper lungs remain clear. IMPRESSION: 1. Patient who presented with suspected infected decubitus ulcer. 2. Patient developed respiratory failure, hypercarbic, with severe acidosis. He had to be intubated for acute respiratory failure and he has been successfully extubated after two or three days of being on the ventilator. 3. Diastolic heart failure. 4. Gram-negative bronchitis/pneumonia. He also has positive urine cultures. 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 5. Persistent atrial fibrillation. 6. History of hypertension. 7. Neurogenic bladder .status post paraplegic-quadriplegic spinal cord injury, cervical spine level. RECOMMENDATIONS: At this point in time, I will consider obtaining a CT of the chest to have a panoramic view of the heart. That may help in deciding if he has significant coronary calcifications or aortic dissection that may explain his chest pain. I do suspect that the reason for his present chest pain is mostly related to possible pulmonary embolism. We cannot use contrast safely because of his renal dysfunction. A ventilation/perfusion scan may be attempted for that purpose; however, we do have a positive venous ultrasound indicating that there is a blood clot in the left superficial femoral vein, and for that matter, the likelihood of pulmonary embolism is extremely high, especially given his presentation with respiratory failure, chest pain, dynamic ECG changes in the right precordial leads. Further intervention will depend on his clinical course; however, for the time being, I would suggest to continue IV anticoagulation as you are doing with heparin and eventually switch over to Lovenox twice a day and further down the road once he is absolutely stable, consider one of the new oral anticoagulation agents, and my preference in this particular case may be to put him on Eliquis since it might be safer. Thank you very much for the opportunity to participate in his evaluation. JUAN
--- NOTE | 2016-05-07 17:42 | Diag Imaging Result Document ---
PROCEDURE NAME: CT THORAX W/O CONTRAST - 05/07/2016 CT SCAN OF THE THORAX WITHOUT CONTRAST: INDICATION: Shortness of breath, respiratory failure. Widened mediastinum. FINDINGS: There is mediastinal lipomatosis. No evidence for mediastinal mass or hematoma. There are calcified hilar lymph nodes. There is atherosclerotic calcification within the aortic arch. There is cardiomegaly. There may be some mild diffuse narrowing of the mainstem bronchi, possibly from mass effect of the heart. There is pulmonary vascular congestion and atelectasis within the right middle lobe and both lung bases. There may be trace effusions. No significant pericardial fluid is appreciated. No evidence for aortic aneurysm. IMPRESSION: 1. Mediastinal lipomatosis. No evidence for mediastinal hematoma, aneurysm or mass. 2. Cardiomegaly. There may be some mass effect upon the mainstem bronchi producing apparent mild narrowing in the AP projection. 3. Bibasilar consolidation and right middle lobe consolidation consistent with atelectasis or pneumonia. 4. Pulmonary vascular congestion, right greater than left. 5. Evidence of previous granulomatous disease. [facility]
[2016-05-07] MEDS: ZOFRAN IV PRN (17:43)
[2016-05-08] MEDS: HEPARIN 25,000 UNITS/D5W 250 ML IV SCH ×4 (02:05→15:56)
[2016-05-08] MEDS: LASIX IV SCH ×2 (02:05→13:27)
[2016-05-08] MEDS: MAXIPIME 2 GM/NS 100 ML IV SCH ×2 (02:05→13:45)
[2016-05-08] MEDS: ATIVAN IV PRN (03:05)
[2016-05-08] MEDS: XOPENEX NEB INH PRN ×4 (03:43→20:34)
[2016-05-08 05:51] LABS: HEMATOCRIT 40.7 % (42.0-52.0); HEMOGLOBIN 11.9 g/dL (14.0-18.0); MCH 24.2 PG (27-31); MCHC 29.2 g/dL (33-37); MCV 82.7 FL (81-99); MPV 11.5 FL (7.4-10.4); RBC 4.92 XMIL (4.7-6.1)
[2016-05-08 06:10] LABS: CALCIUM 8.7 mg/dL (8.8-10.2); POTASSIUM 3.4 mmol/L (3.5-5.1)
[2016-05-08 08:56] LABS: BE 11.5 mmoll (-3.0-3.0); BLOOD TYPE ARTERIAL; DRAW SITE L RADIAL; METHB 1.4 % (0.0-1.5); O2(CT) 17.9 mL/dL (15.0-23.0); PO2(98.6) 112 mmHg (60-100); SAMPLE BLOOD; SAO2 98.5 % (95.0-100.0); THB 13.3 g/dL (11.5-17.4); pH(98.6) 7.35 (7.35-7.45)
[2016-05-08 08:59] LABS: ALLEN TEST YES; MODALITY VENTIMASK; PCO2(98.6) 73 mmHg (35-45)
[2016-05-08] MEDS: ZOFRAN IV PRN ×2 (09:41→13:27)
[2016-05-08] MEDS: ASPIRIN PO SCH (11:20)
[2016-05-08] MEDS ORDERED: COUMADIN PO ONE (11:58)
[2016-05-08 14:39] LABS: INR 1.12 (0.86-1.15); PROTIME 14.7 Seconds (12.1-15.5)
--- NOTE | 2016-05-08 15:06 | PROGRESS NOTE ---
DATE: 05/08/2016 SUBJECTIVE: Patient is much more awake and alert. OBJECTIVE: Blood pressure 171/76, heart rate of 88, respiratory rate 20, temperature 96.8 degrees, 97% on 40%.Cardiovascular: Regular rate and rhythm. Pulmonary: Bilateral breath sounds. Clear to auscultation. GI: Soft, nontender, nondistended. Bowel sounds are positive. LABORATORY DATA: Potassium 3.4, BUN and creatinine 23 and 1.9, hemoglobin and hematocrit 11 and 40, platelets I think are normal. PROBLEM LIST: 1. Acute respiratory failure secondary to obesity hypoventilation syndrome and probable pulmonary embolus. We are weaning off oxygen. I do think he will need BiPAP at night and as needed and I think he probably will need it snf. 2. DVT, presumed PE. He has got a large clot in his left leg. He is currently on heparin. We will initiate Coumadin in him because of his weight. I am not sure really how well the other direct thrombin inhibitors will work. The Coumadin, we can at least monitor his INR. 3. He is too large to get a V/Q scan here or at [facility]. He is too wide to fit in the entry port and then he is too overweight to lay on the V/Q scan machine. 4. Pulmonary edema, CHF exacerbation. We will continue diuresis and monitor his kidney function closely. DISPOSITION: Is still somewhat up in the air because he has Medicaid and no benefits. I do think he would benefit from rehab for some other issues but we will go from there.
[2016-05-08] MEDS: PROTONIX IV SCH (15:56)
[2016-05-08] MEDS: SODIUM CHLORIDE 0.9% INJ SCH (15:56)
[2016-05-08] MEDS ORDERED: BENADRYL IV ONE (20:10)
[2016-05-08] MEDS ORDERED: SOLU-MEDROL IV ONE (20:49)
[2016-05-09] MEDS: HEPARIN 25,000 UNITS/D5W 250 ML IV SCH ×4 (00:17→23:28)
[2016-05-09] MEDS: LASIX IV SCH ×2 (00:19→12:40)
[2016-05-09] MEDS: MAXIPIME 2 GM/NS 100 ML IV SCH ×2 (00:19→12:23)
--- NOTE | 2016-05-09 03:50 | PROGRESS NOTE ---
DATE: 05/08/2016 SUBJECTIVE: Patient seen and examined this afternoon. Appeared to be in mild respiratory distress. Had a Ventimask placed on him, 40%. Denies any fever but complains of overall fatigue, shortness of breath. No cough noted. PHYSICAL EXAMINATION: Vital Signs: Blood pressure 171/76, heart rate is 88, respiratory rate is 20, temperature 96 degrees, oxygen saturation 97% on 40%. Cardiac: S1, S2 heard. Lungs: Breath sounds present, clear bilaterally. Abdomen: Soft. Extremities: No edema. [employer]: No confusion. LABS: WBC count is 5.6, hemoglobin 11.9, hematocrit 40,000, platelet count is 239,000. The last ABG post extubation early this morning, ABG was 7.35, pCO2 is 73, PO2 is 112, bicarb is 33 on 50% Ventimask. Chemistry: Sodium 146, potassium 3.4, chloride 102, bicarb is 33, BUN 23, creatinine 1.9. The sputum culture shows Pseudomonas. ASSESSMENT AND PLAN: 1. Hypoxic, hypercapnic respiratory failure. 2. Deep venous thrombosis with possible pulmonary embolism. 3. Urinary tract infection. 4. Pulmonary edema. PLAN: 1. Reviewed ABG of the patient done this morning. The pH has normalized. However, the pCO2 has remained significantly elevated at 73. We will consider Diamox if her CO2 and bicarb remain elevated. Continue supportive care. Wean off oxygen to keep saturation between 88-72. 2. Deep venous thrombosis and presumed PE. Currently on heparin. Coumadin to be started soon. 3. For pulmonary edema, patient's renal function is monitored. Continue diuresis. 4. Discussed with the patient's sister at the bedside. The patient will need outpatient sleep study with end-tidal CO2 monitoring to assess for severity of sleep apnea and discuss further management and plan. We will also try to discontinue Ventimask and place patient on nasal cannula or high flow. Continue to follow for now.
[2016-05-09 06:35] LABS: HEMATOCRIT 41.3 % (42.0-52.0); HEMOGLOBIN 12.1 g/dL (14.0-18.0); MCH 24.2 PG (27-31); MCHC 29.3 g/dL (33-37); MCV 82.4 FL (81-99); MPV 11.5 FL (7.4-10.4); RBC 5.01 XMIL (4.7-6.1)
[2016-05-09 06:50] LABS: INR 1.14 (0.86-1.15); PROTIME 14.9 Seconds (12.1-15.5)
[2016-05-09 07:04] LABS: PTT PL 73.4 Seconds (22.6-43.9)
[2016-05-09 07:17] LABS: CALCIUM 9.3 mg/dL (8.8-10.2); POTASSIUM 3.7 mmol/L (3.5-5.1)
[2016-05-09] MEDS: XOPENEX NEB INH PRN ×2 (07:59→12:36)
[2016-05-09] MEDS: ASPIRIN PO SCH (10:36)
[2016-05-09] MEDS: SODIUM CHLORIDE 0.9% INJ SCH (16:37)
[2016-05-09] MEDS: PROTONIX IV SCH (16:37)
[2016-05-09] MEDS: IMODIUM PO PRN (16:44)
[2016-05-09] MEDS ORDERED: ZOSYN 2.25 GM/NS 50 ML IV SCH (19:15)
[2016-05-09] MEDS ORDERED: COUMADIN PO SCH (21:00)
[2016-05-09] MEDS: ZOSYN 3.375 GM/NS 50 ML IV SCH (23:31)
[2016-05-10] MEDS: LASIX IV SCH ×2 (01:32→13:47)
[2016-05-10] MEDS: ZOSYN 3.375 GM/NS 50 ML IV SCH ×4 (01:32→19:52)
[2016-05-10 07:01] LABS: HEMATOCRIT 40.9 % (42.0-52.0); HEMOGLOBIN 11.8 g/dL (14.0-18.0); MCHC 28.9 g/dL (33-37); MCV 83.3 FL (81-99); MPV 11.6 FL (7.4-10.4); RBC 4.91 XMIL (4.7-6.1)
[2016-05-10 07:12] LABS: CALCIUM 8.6 mg/dL (8.8-10.2); POTASSIUM 2.9 mmol/L (3.5-5.1)
[2016-05-10 07:21] LABS: INR 1.39 (0.86-1.15); PROTIME 17.3 Seconds (12.1-15.5)
[2016-05-10 07:23] LABS: PTT PL 83.6 Seconds (22.6-43.9)
[2016-05-10 08:23] LABS: BE 12.1 mmoll (-3.0-3.0); BLOOD TYPE ARTERIAL; METHB 1.1 % (0.0-1.5); O2(CT) 16.3 mL/dL (15.0-23.0); PO2(98.6) 58 mmHg (60-100); SAMPLE BLOOD; SAO2 92.9 % (95.0-100.0); THB 12.9 g/dL (11.5-17.4); pH(98.6) 7.41 (7.35-7.45)
[2016-05-10] MEDS: XOPENEX NEB INH PRN ×3 (08:32→15:22)
[2016-05-10 08:40] LABS: MODALITY CANNULA; PCO2(98.6) 62 mmHg (35-45)
[2016-05-10 08:41] LABS: ALLEN TEST YES; DRAW SITE R RADIAL
[2016-05-10] MEDS: ASPIRIN PO SCH (09:20)
--- NOTE | 2016-05-10 10:51 | Diag Imaging Result Document ---
PROCEDURE NAME: CHEST-PORTABLE - 05/10/2016 PORTABLE CHEST: Compared with 05/07/2016. FINDINGS: The endotracheal tube and nasogastric tube have been removed. Heart size appears mildly enlarged and stable. There has been interval decrease in basilar opacities. Infrahilar markings on the left remain mildly prominent. The upper lungs appear clear. There is possibly residual small right pleural effusion. There is no pneumothorax seen. IMPRESSION: Decrease in basilar opacities. Some residual prominence of left infrahilar markings. Possible residual small right pleural effusion.
[2016-05-10] MEDS: POTASSIUM CHLORIDE 20 MEQ/SWI 100 ML IV SCH ×2 (10:53→19:00)
[2016-05-10] MEDS: PRILOSEC PO SCH (13:58)
[2016-05-10] MEDS ORDERED: KLOR-CON PO ONE (14:32)
[2016-05-10] MEDS ORDERED: NS 500 ML ONE (15:58)
--- NOTE | 2016-05-10 18:45 | PROGRESS NOTE ---
DATE: 05/10/2016 SUBJECTIVE: The patient is more awake and alert with no complaints at present. OBJECTIVE: Vital Signs: Blood pressure is 110/63 with a heart rate of 80. Temperature is 98.1 degrees oral with oxygen saturation of 96-97% on 2 L nasal cannula. Cardiovascular: Regular rate and rhythm. S1 and S2 appreciated. Pulmonary: Breath sounds are distant, but they are clear. Chest rises and falls symmetrically with respiration. No increased work of breathing noted. Gastrointestinal: Abdomen is large, soft, nontender, nondistended, with bowel sounds in all 4 quadrants. Neurologic: He is alert and oriented x3. LABS: WBC is 7.2 with hemoglobin 11.8, hematocrit 40.9, and platelets of 219,000. Sodium is 140, potassium 2.9, chloride 96, CO2 36, with a BUN of 27, creatinine of 2, and glucose of 106. PROBLEM LIST: 1. Acute respiratory failure secondary to obesity and hypoventilation syndrome. Probable pulmonary embolus. His sats are staying 94-97 on 2 L nasal cannula. We will continue. 2. Deep vein thrombosis. Presumed pulmonary embolus. He does have a large clot in his left leg. He is currently on Heparin. Warfarin was started yesterday. We will transition over to only warfarin. 3. Presumed pulmonary embolus. We were unable to get a V/Q scan due to the patient's body habitus, weight, as well as width feeding through the entry port. We are unable to get a CT scan due to his creatinine as well as his width. We will continue with pulmonary support, as well as anticoagulation. 4. Pulmonary edema. We will continue with diuresis. Supplemental oxygen. 5. Chronic heart failure exacerbation, diastolic. As stated before, we will continue with diuresis and his current regimen. Cardiology is following. 6. Paraplegia with sacral decubitus ulcers. We will continue with his current regimen and wound care. 7. History of atrial fibrillation. He has had some episodes of atrial fibrillation. As stated before, cardiology is following. We will continue with his anticoagulation. 8. Chronic kidney disease. Creatinine has been stable at the 1.6-2 range which is his norm. We will continue to follow and renal dose any medications. 9. Chronic urinary tract infection with chronic hematuria. He does have known renal stones, having bilateral staghorn with a large right 2 cm ureteropelvic junction, as well as the left ureteropelvic junction and a 4 cm distal left ureteral stone. This is managed with the left nephrostomy tube. Cultures from urine, as well as urine cultures revealed Proteus, as well as Citrobacter. This is chronic for him, as he does a nidus having the stones. This has been present since back in 2013. He remains afebrile with no white count. As this is colonization, we will continue to watch. 10. Morbid obesity. Aware. Dictated by MARY Singh for Ugo Poole MD
[2016-05-10] MEDS: IMODIUM PO PRN (18:51)
[2016-05-10] MEDS ORDERED: COUMADIN PO SCH (21:00)
[2016-05-11] MEDS: LASIX IV SCH ×2 (00:08→14:00)
[2016-05-11] MEDS: ZOSYN 3.375 GM/NS 50 ML IV SCH ×3 (01:09→14:00)
[2016-05-11] MEDS: IMODIUM PO PRN ×2 (04:13→11:47)
[2016-05-11] MEDS: PRILOSEC PO SCH (06:03)
[2016-05-11 07:30] LABS: HEMATOCRIT 41.7 % (42.0-52.0); HEMOGLOBIN 12.2 g/dL (14.0-18.0); MCH 24.1 PG (27-31); MCHC 29.3 g/dL (33-37); MCV 82.4 FL (81-99); MPV 11.7 FL (7.4-10.4); RBC 5.06 XMIL (4.7-6.1)
[2016-05-11] MEDS: ASPIRIN PO SCH ×2 (07:39→10:03)
[2016-05-11 07:41] LABS: INR 1.94 (0.86-1.15); PROTIME 22.3 Seconds (12.1-15.5)
[2016-05-11 07:49] LABS: ALBUMIN 3.4 g/dL (3.5-5.0); CALCIUM 8.7 mg/dL (8.8-10.2); TOTAL BILIRUBIN 0.5 mg/dL (0.20-1.00); TOTAL PROTEIN 7.5 g/dL (6.3-8.3)
[2016-05-11] MEDS: XOPENEX NEB INH PRN ×3 (07:55→15:35)
[2016-05-11] MEDS: HEPARIN 25,000 UNITS/D5W 250 ML IV SCH ×6 (10:07→17:37)
[2016-05-11] MEDS ORDERED: NS 500 ML ONE (12:18)
--- NOTE | 2016-05-11 15:41 | PROGRESS NOTE ---
DATE: 05/11/2016 SUBJECTIVE: The patient is more awake. He has no specific complaints at present. OBJECTIVE: Vital Signs: Blood pressure 131/71, heart rate 92, respirations 20, temperature 98.2 degrees oral with oxygen saturations of 96-97% on 3 L nasal cannula. Cardiovascular: Regular rate and rhythm S1, S2 appreciated. Pulmonary: Breath sounds distant due to body habitus, but are clear. Chest rises and falls symmetrically with respiration. No increased work of breathing noted. Gastrointestinal: Abdomen is large, soft, nontender, nondistended. Bowel sounds in all 4 quadrants. LABORATORY: WBC is 6.9 with hemoglobin 12.2, hematocrit 41.7 and platelets of 227,000. His INR is 1.94. Sodium is 142, potassium 3, BUN 22, creatinine 1.8. Chest x-ray from 05/10/2016 revealed decrease in basilar opacities, some residual prominence of left upper hilar markings with possible residual small right pleural effusion. ASSESSMENT: 1. Acute respiratory failure secondary to obesity and hypoventilation syndrome with probable acute pulmonary embolus. Saturations dropped to 83% yesterday. At that time, he was increased from 2 to 3 L nasal cannula since his saturations have been 93-96%. We will continue with his current regimen. 2. Deep venous thrombosis with a presumed pulmonary embolus. He does have a large clot in his leg. He is currently on heparin. Warfarin was started on the . We will continue to trend his international normalized ratio. Once therapeutic, we can discontinue heparin. 3. Presumed pulmonary embolus. We are unable to get a V/Q scan due to patient's body habitus with weight as well as width, that he will not feed through the entry port. We were unable to get a CT scan due to his creatinine as well as his width. We will continue with Pulmonary support as well as anticoagulation. 4. Pulmonary edema. We will continue with diuresis and supplemental oxygen. 5. Congestive heart failure exacerbation diastolic. We will continue with his current regimen and follow up with Cardiology. 6. Paraplegia with sacral decubitus ulcers. Continue with wound care. 7. History of atrial fibrillation. We will continue with his regimen. 8. Chronic kidney disease. Creatinine has been stable at 1.6 to 2 range which is his normal. We will renal dose any medications. 9. Chronic urinary tract infection with chronic hematuria. He does have known stone disease, having bilateral staghorns with a large right 2 cm ureteropelvic junction stone as well as a left ureteropelvic junction and a 4 cm distal left ureter stone that is managed with the left nephrostomy tube. Cultures over the last looks like 2 years have been Proteus and Citrobacter positive. We will continue to follow as this is most likely colonization. If he develops a white count or any symptoms of infection, then we will cover. 10. Morbid obesity. Aware. Dictated by MARY Singh for Benoit Cordoba MD
[2016-05-11] MEDS ORDERED: COUMADIN PO SCH (21:00)
[2016-05-11 21:18] LABS: INR 2.17 (0.86-1.15); PROTIME 24.3 Seconds (12.1-15.5)
[2016-05-11 21:47] LABS: PTT PL 117.5 Seconds (22.6-43.9)
[2016-05-11] MEDS: LASIX PO SCH (22:31)
[2016-05-11] MEDS ORDERED: HEPARIN 25,000 UNITS/D5W 250 ML IV SCH (22:56)
[2016-05-12 02:43] LABS: INR 2.11 (0.86-1.15); PROTIME 23.8 Seconds (12.1-15.5)
[2016-05-12 02:48] LABS: PTT PL 101.7 Seconds (22.6-43.9)
[2016-05-12] MEDS ORDERED: HEPARIN 25,000 UNITS/D5W 250 ML IV SCH (03:14)
[2016-05-12] MEDS: PRILOSEC PO SCH (06:22)
[2016-05-12 06:25] LABS: HEMOGLOBIN 12.1 g/dL (14.0-18.0); MCH 24.1 PG (27-31); MCHC 29.5 g/dL (33-37); MCV 81.7 FL (81-99); RBC 5.02 XMIL (4.7-6.1)
[2016-05-12 06:33] LABS: INR 2.1 (0.86-1.15); PROTIME 23.7 Seconds (12.1-15.5)
[2016-05-12 06:41] LABS: PTT PL 88.4 Seconds (22.6-43.9)
[2016-05-12 07:00] LABS: ALBUMIN 3.3 g/dL (3.5-5.0); CALCIUM 8.9 mg/dL (8.8-10.2); TOTAL BILIRUBIN 0.5 mg/dL (0.20-1.00); TOTAL PROTEIN 7.6 g/dL (6.3-8.3)
[2016-05-12] MEDS: XOPENEX NEB INH PRN ×4 (07:41→20:47)
[2016-05-12] MEDS ORDERED: KLOR-CON PO ONE (07:58)
[2016-05-12] MEDS: LASIX PO SCH ×2 (08:45→19:59)
[2016-05-12] MEDS: ASPIRIN PO SCH (08:45)
--- NOTE | 2016-05-12 09:13 | PROGRESS NOTE ---
DATE: 05/12/2016 SUBJECTIVE: The patient states he is feeling a lot better this morning. He is denying any cough, congestion. He denies any shortness of breath. He denies any chest pain. He states that his diarrhea seems to have improved. He only had 1 episode early yesterday morning. He had no further episodes over the day. He denies any blood in his stool. PHYSICAL EXAMINATION: Temperature 98.9, pulse 82, respiratory 18. BP 136/70. Saturation 98% on room air. General: The patient is a morbidly obese male who is awake, alert, oriented. He is pleasant to talk with this morning. HEENT: Normocephalic. Neck supple. CV: Regular rate. Chest: Relatively clear although distant breath sounds secondary to his body habitus. Abdomen is soft. LABORATORY DATA: CBC and CMP noted. Potassium 3.0. Creatinine 1.7, which appears to be his baseline since 08/2014. ASSESSMENT: 1. Urinary colonization with Citrobacter and Proteus. 2. Acute bronchitis with Pseudomonas. We will recheck his sputum to assure that this has cleared. 3. Acute respiratory failure likely secondary to Pseudomonas, appears resolved. 4. Chronic congestive heart failure, diastolic, stable. 5. Paraplegia with sacral decubital ulcers, improving. Continue wound care. 6. History of atrial fibrillation. 7. Chronic kidney disease. 8. Hypokalemia. Continue to replace p.o. 9. Deep venous thrombosis. PLAN: A 20 minute discussion this morning with Mr. Crane and his sister regarding DVT, Coumadin, Xarelto. At this point, they both agree and prefer Xarelto if Medicaid will pay for this. We will attempt to get this done. That would alleviate the necessary hassle of him having his INRs checked at home. Currently, his INR is greater than 2 so, therefore, we will stop heparin regardless. Hopefully, we will be able to discharge him home in the next couple of days if his diarrhea continues to improve.
[2016-05-12] MEDS: BENADRYL PO PRN (10:03)
[2016-05-13] MEDS: XOPENEX NEB INH PRN ×4 (04:32→23:15)
[2016-05-13] MEDS: PRILOSEC PO SCH (06:01)
[2016-05-13] MEDS ORDERED: ZOSYN 4.5 GM/NS 100 ML IV SCH (08:15)
[2016-05-13] MEDS ORDERED: ZOSYN 3.375 GM/NS 50 ML IV SCH (09:00)
[2016-05-13] MEDS: XARELTO PO SCH ×2 (09:12→17:50)
[2016-05-13] MEDS: LASIX PO SCH ×2 (09:12→20:02)
[2016-05-13] MEDS: ASPIRIN PO SCH (09:12)
[2016-05-13 11:52] LABS: INR 2.04 (0.86-1.15); PROTIME 23.2 Seconds (12.1-15.5)
--- NOTE | 2016-05-13 12:48 | CONSULTATION ---
DATE OF CONSULTATION: 05/13/2016 ASSESSMENT AND PLAN: Patient has a Pseudomonas pneumonia. We have consulted for a PICC to be placed. We have also consulted [facility] to supply the patient's home intravenous antibiotic consisting of Zosyn 4.5 g intravenous every 6 hours for at least 3 weeks. The plan is for me to see the patient in the office in 3 weeks. At that time, I will examine him and we will repeat his chest x-ray to see if his pneumonia has cleared.
[2016-05-13] MEDS: ZOSYN 4.5 GM/NS 100 ML IV SCH ×3 (13:54→23:09)
--- NOTE | 2016-05-13 18:04 | PROGRESS NOTE ---
DATE: 05/13/2016 SUBJECTIVE: Patient states he is feeling better today. He denies any cough or congestion. He denies shortness of breath, palpitations. He has not had diarrhea in over 24 hours. OBJECTIVE: Vital Signs: Blood pressure is 109/94, with a heart rate of 82, respirations are 18, temperature is 98.2 degrees oral with oxygen saturations of 95%-96% on 2 L nasal cannula. General: Patient is a morbidly obese male who is awake and alert. He is pleasant, in no distress. Cardiovascular: Regular rate and rhythm. S1 and S2 appreciated. Pulmonary: Breath sounds are distant although clear most likely secondary to his body habitus. Gastrointestinal: Abdomen is soft, large, nontender, nondistended with bowel sounds in all 4 quadrants. LABS: INR is 2.04. Microbiology: Sputum preliminary is normal zaria. PROBLEM LIST: 1. Urinary colonization with Citrobacter and Proteus. 2. Acute bronchitis with Pseudomonas, with 2nd culture pending. 3. Acute respiratory failure likely secondary to Pseudomonas. Appears resolved. 4. Chronic congestive heart failure diastolic. Stable. 5. Paraplegia with sacral decubitus ulcers. Improving. 6. History of atrial fibrillation. 7. Chronic kidney disease. 8. Hypokalemia. 9. Deep venous thrombosis. PLAN: We will continue with the current regimen. We have consulted Dr. Juancho Fontaine regarding his pseudomonas in the sputum. The patient has been changed to Zosyn 4.[address] Juancho Fontaine, Infectious Disease, has been consulted. He will order IV antibiotics as well as set up for home IV antibiotics for 3 weeks. Dictated by MARY Singh for Benoit Cordoba MD
[2016-05-14] MEDS: ZOSYN 4.5 GM/NS 100 ML IV SCH ×4 (05:11→23:18)
[2016-05-14] MEDS: PRILOSEC PO SCH (06:15)
[2016-05-14] MEDS ORDERED: NS 500 ML ONE ×2 (07:38→10:12)
[2016-05-14] MEDS: ATIVAN IV PRN (08:02)
[2016-05-14] MEDS: LASIX PO SCH ×2 (10:23→21:19)
[2016-05-14] MEDS: LIORESAL PO SCH ×2 (10:23→19:05)
[2016-05-14] MEDS: XARELTO PO SCH ×2 (10:23→18:38)
[2016-05-14] MEDS: ASPIRIN PO SCH (10:24)
--- NOTE | 2016-05-14 12:04 | Diag Imaging Result Document ---
PROCEDURE NAME: CHEST-PORTABLE - 05/14/2016 PORTABLE CHEST: INDICATION: PICC catheter placement. FINDINGS: A left PICC catheter has been placed with its tip at the junction of the left brachiocephalic vein and IVC. There is stable cardiomegaly. There are no acute infiltrates. Postsurgical changes are noted of the cervical spine. IMPRESSION: PICC catheter is at the junction of left brachiocephalic vein and SVC. Cardiomegaly.
[2016-05-14] MEDS: BENADRYL PO PRN (13:01)
--- NOTE | 2016-05-14 17:00 | PROGRESS NOTE ---
DATE: 05/14/2016 SUBJECTIVE: The patient is feeling a little better today. He denies any cough, congestion, shortness of breath or palpitations. OBJECTIVE: Vital Signs: Blood pressure is 136/83, with a heart rate of 81, respirations are 20, temperature is 97.9 degrees oral, with O2 saturations of 96%-97% on 3 L nasal cannula, 87% on room air. General: This is a morbidly obese male who is lying in the bed. He is awake and alert. Cardiovascular: Regular rate and rhythm. S1 and S2 appreciated. Pulmonary: Breath sounds are distant although clear most likely secondary to his body habitus. Gastrointestinal: Abdomen is large, soft, nontender, nondistended with bowel sounds in all 4 quadrants. DIAGNOSTIC DATA: There are no labs today. Chest x-ray: PICC catheter is at the junction of the brachiocephalic vein and the SVC. Cardiomegaly. There are no infiltrates. PROBLEM LIST: 1. Urinary colonization with Citrobacter and Proteus. 2. Acute bronchitis with Pseudomonas. 3. Acute respiratory support failure likely secondary to Pseudomonas. Appears resolved. 4. Chronic congestive heart failure, diastolic. Stable. 5. Paraplegia with sacral decubitus ulcers. Improving. 6. History of atrial fibrillation. 7. Chronic kidney disease. 8. Hypokalemia. 9. Deep vein thrombosis. PLAN: Will continue his current regimen. The plan was for the patient to go home, be discharged today to receive Zosyn 4.5 mg every 6 hours via home IV antibiotics for 3 weeks and follow up with Dr. Fontaine. Just prior to discharge [facility] notified our secondary social studies teacher that they would not except Mr. Jaffe. They feel they cannot meet his needs. They feel that he needs to go to rehab. Therefore the patient will remain inpatient as we seek a rehab bed. Dictated by MARY Singh for Benoit Cordoba MD
[2016-05-14] MEDS: DESYREL PO SCH (21:19)
[2016-05-14] MEDS: ROBAXIN PO SCH (21:19)
[2016-05-15] MEDS: ROBAXIN PO SCH ×3 (04:14→20:42)
[2016-05-15] MEDS: ZOSYN 4.5 GM/NS 100 ML IV SCH ×4 (05:14→23:25)
[2016-05-15] MEDS: PRILOSEC PO SCH (06:06)
[2016-05-15] MEDS: XOPENEX NEB INH PRN (07:05)
[2016-05-15] MEDS: LASIX PO SCH ×2 (09:55→20:42)
[2016-05-15] MEDS: BENADRYL PO PRN (09:56)
[2016-05-15] MEDS: XARELTO PO SCH ×2 (09:56→17:21)
[2016-05-15] MEDS: ASPIRIN PO SCH (09:56)
--- NOTE | 2016-05-15 13:18 | PROGRESS NOTE ---
DATE: 05/15/2016 SUBJECTIVE: Patient without new complaints. States he is feeling better. No chest pain, palpitations. Notes the diarrhea has resolved. OBJECTIVE: Vital Signs: Reviewed. Temperature 97.8 degrees, pulse 78. Respiratory 20. BP 148/76. General: Patient is a well developed, obese male who is currently in no respiratory distress. He is awake, alert. Neck: Supple. CV: Regular rate. Chest: Relatively clear although decreased breath sounds due to body habitus. Abdomen: Soft. ASSESSMENT: 1. Urinary colonization was Citrobacter and Proteus. 2. Acute bronchitis with Pseudomonas. 3. Acute respiratory support secondary to Pseudomonas. 4. Congestive heart failure, diastolic. 5. Paraplegia with sacral decubitus ulcers improving with wound therapy. 6. Chronic kidney disease. 7. History of atrial fibrillation. 8. Hypokalemia. PLAN: Dr. Fontaine, Infectious Disease feels as though Mr. Jaffe needs to be treated for 3 weeks with Zosyn. Today is day 3 of . Unfortunately home health was not able to be set up and therefore he will be in the hospital throughout the entire treatment as patient is unfortunately incapable of caring for this at home.
[2016-05-15] MEDS: DESYREL PO SCH (20:42)
[2016-05-16] MEDS: ROBAXIN PO SCH ×3 (04:15→20:57)
[2016-05-16] MEDS: ZOSYN 4.5 GM/NS 100 ML IV SCH ×3 (05:26→18:57)
[2016-05-16] MEDS: PRILOSEC PO SCH (06:35)
[2016-05-16] MEDS: XARELTO PO SCH ×2 (08:39→18:57)
[2016-05-16] MEDS: ASPIRIN PO SCH (08:39)
[2016-05-16] MEDS: LASIX PO SCH ×2 (08:39→20:57)
--- NOTE | 2016-05-16 14:29 | PROGRESS NOTE ---
DATE: 05/15/2016 SUBJECTIVE: The patient without any new complaints. Denies any chest pain or palpitations. OBJECTIVE: Vital Signs: Reviewed and stable. General: Patient is an obese male who is currently in no respiratory distress. He is awake and alert. Neck: Supple. Cardiovascular: Regular rate. Chest: Relatively clear but decreased due to body habitus. Abdomen: Soft, obese. ASSESSMENT: 1. Urinary colonization and Citrobacter and Proteus. 2. Acute bronchitis with Pseudomonas. We will continue Zosyn. 3. Congestive heart failure, diastolic, stable. 4. Paraplegia with sacral decubitus ulcers. Continue wound therapy. 5. Chronic kidney disease. PLAN: We will continue patient on Zosyn. He is currently day 4 of 21. No other changes needed.
[2016-05-16] MEDS: DESYREL PO SCH (20:57)
[2016-05-16] MEDS: XOPENEX NEB INH PRN (21:17)
[2016-05-17] MEDS: ZOSYN 4.5 GM/NS 100 ML IV SCH ×5 (00:06→22:37)
[2016-05-17] MEDS: XOPENEX NEB INH PRN ×2 (01:32→23:30)
[2016-05-17] MEDS: PRILOSEC PO SCH ×2 (05:58→06:00)
[2016-05-17] MEDS: ROBAXIN PO SCH ×4 (05:59→20:53)
[2016-05-17] MEDS: XARELTO PO SCH ×2 (08:21→18:09)
[2016-05-17] MEDS: ASPIRIN PO SCH (08:21)
[2016-05-17] MEDS: LASIX PO SCH ×3 (08:21→20:53)
--- NOTE | 2016-05-17 08:42 | PROGRESS NOTE ---
DATE: 05/17/2016 SUBJECTIVE: Patient without new complaints. He has no new problems. PHYSICAL EXAMINATION: Vital Signs: Temperature 98, pulse 100, respiratory rate 18, BP 124/89, saturation 96% on 2 L. General: Patient is an obese male who is currently in no respiratory distress. He is awake, alert. Neck: Supple. CV: Regular rate. Chest: Clear. Abdomen: Soft. Extremities: Moves upper extremities. 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 ASSESSMENT: 1. Deep venous thrombosis, currently on Xarelto. Patient had a presumed pulmonary embolus but he too large to undergo a V/Q scan. 2. Urinary colonization with Citrobacter and Proteus. 3. Pseudomonas bronchitis. We will continue Zosyn. He currently is on day 5 of 21. 4. Diastolic congestive heart failure, stable. 5. Paraplegia with sacral decubitus ulcers. Continue wound therapy. 6. Diarrhea, resolved. 7. Chronic kidney disease, stable. PLAN: As noted, patient currently is on day 5 21 of IV Zosyn. We will continue his current medications and continue Xarelto.
[2016-05-17] MEDS: BENADRYL PO PRN ×2 (11:17→19:52)
[2016-05-17] MEDS ORDERED: NS 250 ML ONE (11:21)
[2016-05-17] MEDS: DESYREL PO SCH ×2 (19:48→20:53)
[2016-05-17] MEDS ORDERED: ROBITUSSIN ONE (19:51)
[2016-05-17] MEDS: ROBITUSSIN PO PRN (19:53)
[2016-05-18] MEDS: ZOSYN 4.5 GM/NS 100 ML IV SCH ×4 (03:38→17:28)
[2016-05-18] MEDS: ROBITUSSIN PO PRN (05:12)
[2016-05-18] MEDS: BENADRYL PO PRN ×2 (05:13→22:34)
[2016-05-18] MEDS: PRILOSEC PO SCH ×2 (05:13→06:16)
[2016-05-18] MEDS: ROBAXIN PO SCH ×3 (05:13→22:34)
[2016-05-18] MEDS: ASPIRIN PO SCH (08:58)
[2016-05-18] MEDS: LASIX PO SCH ×2 (08:58→22:34)
[2016-05-18] MEDS: XARELTO PO SCH ×2 (08:58→17:27)
[2016-05-18] MEDS: XOPENEX NEB INH PRN (12:35)
[2016-05-18] MEDS ORDERED: KLOR-CON PO ONE (17:00)
--- NOTE | 2016-05-18 17:31 | PROGRESS NOTE ---
DATE: 05/18/2016 SUBJECTIVE: Patient has no focal complaints. OBJECTIVE: Vital signs: Blood pressure 133/69, heart rate of 84, respiratory rate 18, temperature 98.3 degrees. Cardiovascular: Regular rate and rhythm. Pulmonary: Bilateral breath sounds. Clear to auscultation. GI: Soft, nontender, nondistended. Bowel sounds are positive. LABORATORY DATA: Normal white count. We have not checked it in a couple days. Potassium 3. PROBLEM LIST: 1. Pseudomonas pneumonia. He is on Zosyn. He has been on that since the , that is about 5 days. Reportedly will need 3 weeks of treatment. We are working on rehab placement for that and he will need the IV therapy. He does have a PICC line. 2. Deep vein thrombosis, possible pulmonary embolism. He is on Xarelto. Will continue that medication and follow. 3. Renal insufficiency. Appears to be stable. He is on Lasix. DISPOSITION: Hopefully rehab in the next 1-2 days.
[2016-05-18] MEDS: DESYREL PO SCH (22:34)
[2016-05-19] MEDS: ZOSYN 4.5 GM/NS 100 ML IV SCH ×4 (00:13→18:19)
[2016-05-19] MEDS: ROBAXIN PO SCH ×2 (06:00→12:45)
[2016-05-19 06:48] LABS: CALCIUM 8.2 mg/dL (8.8-10.2)
[2016-05-19] MEDS: PRILOSEC PO SCH (06:55)
[2016-05-19] MEDS: ASPIRIN PO SCH (08:42)
[2016-05-19] MEDS: LASIX PO SCH (08:42)
[2016-05-19] MEDS: XARELTO PO SCH ×2 (08:42→18:19)
[2016-05-19] MEDS: XOPENEX NEB INH PRN ×2 (13:03→15:06)
--- NOTE | 2016-05-19 17:37 | PROGRESS NOTE ---
DATE: 05/19/2016 SUBJECTIVE: Patient has no focal complaints. OBJECTIVE: Vital Signs: Blood pressure 135/68, heart rate 102, respiratory rate 20, temperature 98.1. Cardiovascular: Regular rate and rhythm. Pulmonary: Bilateral breath sounds. Clear to auscultation. GI: Soft, nontender, nondistended. Bowel sounds are positive. LABORATORY DATA: None today. PROBLEM LIST: 1. Pseudomonas pneumonia. He is on IV Zosyn. PLAN: 1. Still for IV antibiotics at outlying facility. We can get down to Zosyn q.8, but that is going to be the best we can do based on sensitivities. I have discussed that with Dr. Fontaine. 2. Chronic nephrostomy associated with staghorn calculi and colonized bladder. We will continue supportive care. Not treating urinary tract infection unless he is symptomatic. 3. Deep vein thrombosis. He is on Xarelto. 4. Paraplegia. Continue care as bowel regimen and follow. 5. Decubitus ulcer. Continue wound care. DISPOSITION: Hopefully discharge tomorrow to [facility]. We will continue to follow.
[2016-05-19] MEDS ORDERED: NS 250 ML ONE (18:16)
[2016-05-19] MEDS: DUONEB (A & A) INH SCH ×2 (18:47→21:20)
[2016-05-19] MEDS: LASIX IV SCH (19:00)
[2016-05-19] MEDS: IMODIUM PO PRN (19:28)
[2016-05-19] MEDS: BENADRYL PO PRN (19:28)
[2016-05-19] MEDS: DESYREL PO SCH (21:54)
[2016-05-20] MEDS: ZOSYN 4.5 GM/NS 100 ML IV SCH ×5 (01:09→23:43)
[2016-05-20] MEDS: DUONEB (A & A) INH SCH ×4 (04:19→21:00)
[2016-05-20] MEDS: LASIX IV SCH ×2 (05:42→17:48)
[2016-05-20] MEDS: PRILOSEC PO SCH (06:36)
[2016-05-20 06:42] LABS: HEMATOCRIT 40.3 % (42.0-52.0); HEMOGLOBIN 11.6 g/dL (14.0-18.0); MCHC 28.8 g/dL (33-37); MCV 83.4 FL (81-99); MPV 11.2 FL (7.4-10.4); RBC 4.83 XMIL (4.7-6.1)
[2016-05-20 07:14] LABS: CALCIUM 8.3 mg/dL (8.8-10.2); POTASSIUM 3.2 mmol/L (3.5-5.1)
[2016-05-20] MEDS: XARELTO PO SCH ×2 (08:20→17:40)
[2016-05-20] MEDS: ASPIRIN PO SCH (08:21)
--- NOTE | 2016-05-20 10:00 | PROGRESS NOTE ---
DATE: 05/20/2016 SUBJECTIVE: The patient without any new complaints. Denies any fevers or chills. OBJECTIVE: Vital Signs: On physical exam, temperature 98.0 degrees, pulse 103, respiratory rate 21, BP 141/74, sat 96% on 2 L. General: Patient is well developed, well nourished. Currently in no respiratory distress. He is awake and alert. Neck: Supple. HEENT: Normocephalic, atraumatic. PERRLA. CV: Regular rate. Chest: Relatively clear. Abdomen: Soft, obese, nondistended. Extremities: Moves upper extremities well. LABS: Reviewed. ASSESSMENT: 1. Hypokalemia. Will replace. 2. Deep vein thrombosis. Continue Xarelto. 3. Urinary colonization with Citrobacter and Proteus. 4. Pseudomonas bronchitis. Continue Zosyn. Patient currently is on day 8 of . 5. Diastolic congestive heart failure, stable. 6. Paraplegia with sacral decubitus. Continue wound therapy. Continues to improve. 7. Chronic kidney disease. PLAN: We will continue patient on his current medication regimen. He is on day 8 of of IV Zosyn. Hopefully he will be able to discharge to rehab soon.
--- NOTE | 2016-05-20 10:12 | Diag Imaging Result Document ---
PROCEDURE NAME: CHEST-PORTABLE - 05/19/2016 SINGLE FRONTAL RADIOGRAPH OF THE CHEST: COMPARISON: 05/14/2016. FINDINGS: The left PICC line is in stable position. Inspiration is suboptimal. This is causing central vascular crowding. There is suggestion of mild linear atelectasis at the lung bases. No definite new consolidations are identified, otherwise. The cardiomediastinal silhouette is prominent but appears to be stable. IMPRESSION: Lower lung volumes and suggestion of mild bibasilar atelectasis. Stable chest, otherwise.
[2016-05-20] MEDS: IMODIUM PO PRN (11:16)
[2016-05-20] MEDS: BENADRYL PO PRN (11:16)
[2016-05-20] MEDS: DESYREL PO SCH (20:00)
[2016-05-21] MEDS: DUONEB (A & A) INH SCH ×3 (03:37→21:22)
[2016-05-21] MEDS: LASIX IV SCH (06:26)
[2016-05-21] MEDS: PRILOSEC PO SCH (06:26)
[2016-05-21] MEDS: ZOSYN 4.5 GM/NS 100 ML IV SCH ×4 (06:26→23:58)
[2016-05-21] MEDS: XARELTO PO SCH ×2 (09:54→18:07)
[2016-05-21] MEDS: ASPIRIN PO SCH (09:54)
[2016-05-21] MEDS: BENADRYL PO PRN ×2 (14:49→22:10)
--- NOTE | 2016-05-21 17:44 | PROGRESS NOTE ---
DATE: 05/21/2016 SUBJECTIVE: Patient has no focal complaints. OBJECTIVE: Vital signs: Blood pressure 117/59, heart rate of 105, respiratory rate 20, temperature 96 on 3 L. Cardiovascular: Regular rate and rhythm. Pulmonary: Bilateral breath sounds. Clear to auscultation. GI: Soft, nontender, nondistended. Bowel sounds are positive. LABORATORY DATA: Hemoglobin and hematocrit 11, 40. Potassium 3.2, creatinine 1.9. PROBLEM LIST: 1. Pseudomonas pneumonia. He is on Zosyn. His chest x-ray is stable. He currently is on Zosyn. He has been on it now for 8 days out of a total of 3 weeks so 11/22. We are looking into trying to get him home so we will continue to follow, either home with home health or to rehab bed. 2. Acute respiratory failure. He seems to be doing stable. 3. Hypokalemia stable. 4. Atrial fibrillation. He is rate controlled currently. He is not on any medications for that. His heart rate is a little on the fast side, I am not sure why we stopped it, put him back on some Cardizem maybe 120 dose daily. He is already on Xarelto. 5. Disposition. Again planning on doing treatment either at home with home health or rehab.
[2016-05-21] MEDS: CARDIZEM CD PO SCH (18:11)
[2016-05-21] MEDS: LASIX PO SCH (21:06)
[2016-05-21] MEDS: DESYREL PO SCH (21:06)
[2016-05-21] MEDS: IMODIUM PO PRN (22:10)
[2016-05-22] MEDS: DUONEB (A & A) INH SCH ×2 (03:01→09:00)
[2016-05-22] MEDS: ZOSYN 4.5 GM/NS 100 ML IV SCH ×3 (06:27→17:26)
[2016-05-22] MEDS: PRILOSEC PO SCH (06:27)
[2016-05-22 06:57] LABS: CALCIUM 8.1 mg/dL (8.8-10.2); MAGNESIUM 1.9 mg/dL (1.5-2.7); POTASSIUM 2.9 mmol/L (3.5-5.1)
[2016-05-22] MEDS: XARELTO PO SCH ×2 (10:59→17:29)
[2016-05-22] MEDS: LASIX PO SCH ×2 (10:59→20:33)
[2016-05-22] MEDS: CARDIZEM CD PO SCH (10:59)
[2016-05-22] MEDS: ASPIRIN PO SCH (10:59)
[2016-05-22] MEDS ORDERED: KLOR-CON PO ONE (16:13)
--- NOTE | 2016-05-22 16:32 | PROGRESS NOTE ---
DATE: 05/22/2016 SUBJECTIVE: The patient has no focal complaints. He looks much less winded than yesterday. In fact he was asking questions. Vital signs: Blood pressure 144/80, heart rate of 85, respiratory rate 20, temperature 98.7 degrees, 93% on 3 L. Cardiovascular: Regular rate and rhythm. Pulmonary: Bilateral breath sounds. Clear to auscultation. GI: Soft, nontender, nondistended. Bowel sounds are positive. LABORATORY DATA: Hemoglobin and hematocrit of 11 and 40, platelets at 282,000. Chemistry showed potassium at 2.9, creatinine of 1.4. PROBLEM LIST: 1. Pseudomonas pneumonia. He is still getting antibiotics. Per my count he is on day 9 . I think we may be able to reassess after 14 days. I am going to talk to Dr. Fontaine on Tuesday and possibly transition him to p.o. at that point. We are waiting for rehab that. 2. Acute respiratory failure. Currently stable on his level of oxygen. Continue pulmonary toilet. He is on Lasix. 3. Atrial fibrillation. He seems to be rate controlled on Cardizem. He is on Xarelto, maintaining him on Cardizem and follow. 4. Disposition: Either rehab or home with home health the next day or 2. We will continue to monitor.
[2016-05-22] MEDS: BENADRYL PO PRN (18:37)
[2016-05-22] MEDS: IMODIUM PO PRN (18:37)
[2016-05-22] MEDS: DESYREL PO SCH (20:33)
[2016-05-23] MEDS: ZOSYN 4.5 GM/NS 100 ML IV SCH ×4 (01:00→19:05)
[2016-05-23] MEDS: PRILOSEC PO SCH ×2 (05:20→06:20)
[2016-05-23 06:35] LABS: CALCIUM 8.4 mg/dL (8.8-10.2); POTASSIUM 2.9 mmol/L (3.5-5.1)
[2016-05-23] MEDS: ASPIRIN PO SCH (10:08)
[2016-05-23] MEDS: CARDIZEM CD PO SCH (10:08)
[2016-05-23] MEDS: LASIX PO SCH (10:08)
[2016-05-23] MEDS: ROBAXIN PO PRN ×2 (10:08→19:03)
[2016-05-23] MEDS: XARELTO PO SCH ×2 (10:09→19:03)
[2016-05-23] MEDS ORDERED: KLOR-CON PO ONE (14:16)
[2016-05-23] MEDS: DUONEB (A & A) INH PRN ×2 (15:32→21:27)
--- NOTE | 2016-05-23 17:03 | PROGRESS NOTE ---
DATE: 05/23/2016 SUBJECTIVE: Patient has no focal complaints. OBJECTIVE: Vital signs: Blood pressure 148/96, heart rate 73, respiratory rate 20, temperature 98.7 degrees, 95-96 on 2 L although reported here 90% on 3. PROBLEM LIST: 1. Pseudomonas pneumoniae. He is on day 10 of 21 of treatment. We are continuing antibiotics and following. 2. Acute respiratory failure. He is stable on his current oxygen. Continue pulmonary toilet. 3. Atrial fibrillation. Stable on current Cardizem and Xarelto dosing. 4. Paraplegia, decubitus ulcer. He is continuing to get wound care. 5. Disposition. Deciding about home IV therapy versus rehab. We will reassess tomorrow after further evaluation. 6. Hypokalemia. We will check his potassium and magnesium tomorrow just because he is persistently hypokalemic. May be related to diuretic therapy.
[2016-05-23] MEDS: IMODIUM PO PRN (19:03)
[2016-05-23] MEDS: BENADRYL PO PRN (19:03)
[2016-05-23] MEDS: DESYREL PO SCH (22:12)
[2016-05-24] MEDS: ZOSYN 4.5 GM/NS 100 ML IV SCH ×5 (00:36→18:00)
[2016-05-24] MEDS: DUONEB (A & A) INH PRN ×3 (03:05→15:49)
[2016-05-24] MEDS: PRILOSEC PO SCH ×2 (04:38→06:42)
[2016-05-24] MEDS: XARELTO PO SCH ×2 (09:56→17:59)
[2016-05-24] MEDS: CARDIZEM CD PO SCH (09:56)
[2016-05-24] MEDS: ASPIRIN PO SCH (09:56)
[2016-05-24] MEDS: LASIX PO SCH (09:56)
[2016-05-24 11:10] LABS: CALCIUM 8.6 mg/dL (8.8-10.2); POTASSIUM 3.2 mmol/L (3.5-5.1)
[2016-05-24] MEDS: BENADRYL PO PRN (18:43)
[2016-05-24] MEDS: ROBAXIN PO PRN (18:43)
[2016-05-24] MEDS: IMODIUM PO PRN (18:43)
--- NOTE | 2016-05-24 19:47 | PROGRESS NOTE ---
DATE: 05/24/2016 SUBJECTIVE: Patient has no focal complaints. He is lying in the bed watching TV. OBJECTIVE: Vital Signs: Blood pressure is 137/87, heart rate 92, respirations 18, temperature is 98.4 degrees oral, with O2 saturations of 96-97% on 3 L nasal cannula. Cardiovascular: Regular rate and rhythm. S1, S2 appreciated. Pulmonary: He does have diminished breath sounds with no increased work of breathing noted. Gastrointestinal: Abdomen is soft, large, nontender, nondistended with bowel sounds in all 4 quadrants. LABS: Sodium is 141, potassium 3.2, BUN 14, creatinine 1.4, with a glucose of 156. PROBLEM LIST: 1. Pseudomonas pneumonia. He is on day 11 of 21 of the treatment. We will continue antibiotics and follow. 2. Acute respiratory failure. This is stable on O2 at 3 L. We will continue pulmonary toilet. 3. Atrial fibrillation. Cardizem with Xarelto dosing. 4. Paraplegia. Decubitus ulcer. We will continue with current wound care. 5. Hypokalemia/electrolyte imbalance. We will trend electrolytes and replete as appropriate. Dictated by MARY Singh for Ugo Poole MD pt examined, agree with above, difficult disposition, limited rehab options due to medicaid status, home iv company will not assume care without [facility] home health nursing and no company is willing to accept hime at this juncture, will continue iv abx inpt for now APENOT MTDD
[2016-05-24] MEDS ORDERED: KLOR-CON PO ONE (21:34)
[2016-05-24] MEDS: DESYREL PO SCH (21:37)
[2016-05-24] MEDS ORDERED: KLOR-CON ONE (21:42)
[2016-05-25] MEDS: ZOSYN 4.5 GM/NS 100 ML IV SCH ×4 (00:59→17:21)
[2016-05-25] MEDS: ROBAXIN PO PRN (02:42)
[2016-05-25] MEDS: DUONEB (A & A) INH PRN (02:55)
[2016-05-25] MEDS: PRILOSEC PO SCH (06:13)
[2016-05-25] MEDS ORDERED: ROBITUSSIN PO PRN (08:35)
[2016-05-25] MEDS: ASPIRIN PO SCH (09:55)
[2016-05-25] MEDS: CARDIZEM CD PO SCH (09:55)
[2016-05-25] MEDS: LASIX PO SCH (09:55)
[2016-05-25] MEDS: XARELTO PO SCH ×2 (09:55→17:21)
--- NOTE | 2016-05-25 13:09 | PROGRESS NOTE ---
DATE: 05/25/2016 SUBJECTIVE: Patient notes he is feeling better. He has no complaints. Denies any chest pain, palpitations. OBJECTIVE: Vital Signs: Temperature 98 degrees, respiratory 18, BP 120/74, saturation 96% on 2 L. General: Patient is a well-developed, obese male who is currently in no respiratory distress. He is awake, alert. Neck: Supple. Cardiovascular: Regular rate. Chest: Relatively clear. Abdomen: Soft. Extremities: Moves all extremities without problems. Lower extremities are paralyzed. Neurologic: No changes. LABORATORY DATA: No current labs today. We will check in the a.m. ASSESSMENT AND PLAN: 1. Pseudomonas pneumonia he is on day 12 of . We will continue Zosyn. 2. Atrial fibrillation currently on Cardizem and Xarelto, doing well. 3. Paraplegia with decubitus ulcer, doing well. 4. Hypokalemia, improving. We will recheck in the a.m. 5. Morbid obesity.
[2016-05-25] MEDS: IMODIUM PO PRN (16:00)
[2016-05-25] MEDS: BENADRYL PO PRN (16:00)
[2016-05-25] MEDS ORDERED: NS 100 ML ONE (17:18)
[2016-05-25] MEDS: DESYREL PO SCH (20:30)
[2016-05-26] MEDS: ZOSYN 4.5 GM/NS 100 ML IV SCH ×4 (00:06→17:40)
[2016-05-26] MEDS: PRILOSEC PO SCH (06:03)
[2016-05-26 06:33] LABS: HEMATOCRIT 37.1 % (42.0-52.0); HEMOGLOBIN 10.9 g/dL (14.0-18.0); MCH 24.1 PG (27-31); MCHC 29.4 g/dL (33-37); MCV 81.9 FL (81-99); MPV 11.6 FL (7.4-10.4); RBC 4.53 XMIL (4.7-6.1)
[2016-05-26 06:34] LABS: CALCIUM 8.3 mg/dL (8.8-10.2); MAGNESIUM 2.1 mg/dL (1.5-2.7); POTASSIUM 3.7 mmol/L (3.5-5.1); TOTAL BILIRUBIN 0.5 mg/dL (0.20-1.00); TOTAL PROTEIN 6.6 g/dL (6.3-8.3)
[2016-05-26] MEDS: DUONEB (A & A) INH PRN ×2 (07:36→20:24)
[2016-05-26] MEDS: XARELTO PO SCH ×2 (09:02→16:31)
[2016-05-26] MEDS: CARDIZEM CD PO SCH (09:02)
[2016-05-26] MEDS: LASIX PO SCH (09:02)
[2016-05-26] MEDS: ASPIRIN PO SCH (09:02)
--- NOTE | 2016-05-26 11:12 | PROGRESS NOTE ---
DATE: 05/26/2016 SUBJECTIVE: The patient is without complaints. He is lying in bed. He is watching television. OBJECTIVE: Temperature 98 degrees, pulse 91, respiratory 20 and BP 147/101. General: Patient is awake and alert. He is lying in bed. He is in no distress. Neck is supple. CV: Regular rate. Chest with decreased breath sounds due to body habitus but otherwise sounds clear. Abdomen soft. Extremities: Moves all extremities. ASSESSMENT: 1. Pseudomonas pneumonia. He is on day 13 . 2. Atrial fibrillation. Continue Cardizem with Xarelto. 3. Hypertension. We will add lisinopril. 4. Paraplegia with decubitus ulcer. Continue to improve. 5. Chronic renal failure. Serum creatinine is stable. 6. Hypokalemia resolved. Potassium 3.7 today.
[2016-05-26] MEDS: PRINIVIL PO SCH (11:23)
[2016-05-26] MEDS: BENADRYL PO PRN (17:39)
[2016-05-26] MEDS: IMODIUM PO PRN (17:39)
[2016-05-26] MEDS: DESYREL PO SCH (20:46)
[2016-05-27] MEDS: ZOSYN 4.5 GM/NS 100 ML IV SCH ×4 (00:59→21:28)
[2016-05-27] MEDS: NS 500 ML IV SCH (01:58)
[2016-05-27] MEDS: PRILOSEC PO SCH (06:34)
[2016-05-27 07:09] LABS: HEMATOCRIT 36.3 % (42.0-52.0); HEMOGLOBIN 10.5 g/dL (14.0-18.0); MCH 23.6 PG (27-31); MCHC 28.9 g/dL (33-37); MCV 81.6 FL (81-99); MPV 11.5 FL (7.4-10.4); RBC 4.45 XMIL (4.7-6.1)
[2016-05-27 07:22] LABS: CALCIUM 8.5 mg/dL (8.8-10.2); MAGNESIUM 2.1 mg/dL (1.5-2.7); POTASSIUM 3.7 mmol/L (3.5-5.1); TOTAL BILIRUBIN 0.6 mg/dL (0.20-1.00); TOTAL PROTEIN 6.5 g/dL (6.3-8.3)
[2016-05-27] MEDS: DUONEB (A & A) INH PRN ×3 (07:34→21:30)
--- NOTE | 2016-05-27 09:22 | PROGRESS NOTE ---
DATE: 05/27/2016 SUBJECTIVE: Patient without complaints. He notes that he is feeling okay. He is having some mild cough, but he notes it is nonproductive. OBJECTIVE: Vital Signs: On physical, temp 98.0 degrees, pulse 76, respiratory 20, BP 109/61. General: Patient is a well developed, obese male, who is currently in no respiratory distress. He does have upper airway noise and rhonchi noted on exam. HEENT: Normocephalic. Neck: Supple. CV: Regular rate. Chest: Relatively clear. Abdomen: Soft, obese. LABS: CBC and CMP reviewed. Creatinine noted to be mildly elevated at 1.7, which is certainly within his baseline range. ASSESSMENT: 1. Chronic renal failure. Serum creatinine baseline is 1.3-1.8. 2. Hypertension. Added lisinopril 10 mg. we will continue to follow his kidney function. 3. Hypokalemia, resolved. 4. Morbid obesity. 5. Pseudomonas pneumonia. Currently it is day 14 of 21 of Zosyn. 6. Atrial fibrillation. Continue Cardizem and Xarelto. 7. Paraplegia. PLAN: We will continue IV Zosyn for the full 21 days, and then hopefully will be able to be discharged home. We will continue to follow his blood pressures and his oxygen levels.
[2016-05-27] MEDS: IMODIUM PO PRN (09:56)
[2016-05-27] MEDS: BENADRYL PO PRN ×2 (09:56→16:21)
[2016-05-27] MEDS: LASIX PO SCH (09:56)
[2016-05-27] MEDS: PRINIVIL PO SCH (09:57)
[2016-05-27] MEDS: XARELTO PO SCH ×2 (09:57→16:22)
[2016-05-27] MEDS: ASPIRIN PO SCH (09:57)
[2016-05-27] MEDS: CARDIZEM CD PO SCH (09:57)
[2016-05-27] MEDS: ROBAXIN PO PRN (16:26)
[2016-05-27] MEDS: DESYREL PO SCH (21:24)
[2016-05-28] MEDS: ZOSYN 4.5 GM/NS 100 ML IV SCH ×4 (03:38→20:36)
[2016-05-28] MEDS: PRILOSEC PO SCH (06:24)
[2016-05-28] MEDS: BENADRYL PO PRN ×3 (06:25→22:23)
[2016-05-28] MEDS: IMODIUM PO PRN ×2 (06:25→22:23)
[2016-05-28] MEDS: DUONEB (A & A) INH PRN ×2 (07:39→15:16)
[2016-05-28] MEDS: ASPIRIN PO SCH (08:23)
[2016-05-28] MEDS: CARDIZEM CD PO SCH (08:23)
[2016-05-28] MEDS: LASIX PO SCH (08:23)
[2016-05-28] MEDS: PRINIVIL PO SCH (08:23)
[2016-05-28] MEDS: XARELTO PO SCH ×2 (08:23→16:43)
--- NOTE | 2016-05-28 09:14 | PROGRESS NOTE ---
DATE: 05/28/2016 SUBJECTIVE: The patient's sister was alarmed yesterday that he has a sacral decubitus and that he is on antibiotics. She was also alarmed that wound therapy was not using Desitin, but instead was using other compounds on his decubitus ulceration. The patient has no other complaints. Denies any cough and congestion. PHYSICAL EXAMINATION: Vital Signs: Temperature 97, pulse 83, respiratory rate 20, blood pressure 123/59. General: The patient is a morbidly obese male who has little movement. He has no movement in his lower extremities. He is currently awake, alert, sitting watching TV. He is talking, in no distress. HEENT: Normocephalic. Neck: Supple. Cardiovascular: Regular rate. Chest: Relatively clear. Abdomen: Soft, obese. Extremities: No edema. ASSESSMENT AND PLAN: 1. Pseudomonas pneumonia. I again discussed with the sister and the patient Dr. Fontaine' plan of 21 days of Zosyn for his Pseudomonas pneumonia. He currently is on day 15. I discussed her that Zosyn is not causing him to have a decubitus ulcer, instead his large body habitus and immobility is the cause. 2. Atrial fibrillation. Continue Xarelto. 3. Deep vein thrombosis. Continue Xarelto. 4. Hypertension. Blood pressures are much better on lisinopril. 5. Hypokalemia, resolved. 6. Chronic renal failure. Serum creatinine is typically 1.4 to 1.7. We will recheck in the morning since we have restarted lisinopril. 7. Sacral decubitus ulcer. We will continue wound therapy's recommendations.
[2016-05-28] MEDS ORDERED: CALMOSEPTINE OINTMENT TOP SCH (14:01)
[2016-05-28] MEDS: CALMOSEPTINE OINTMENT TOP SCH ×2 (16:42→20:36)
[2016-05-28] MEDS: DESYREL PO SCH (20:36)
[2016-05-29] MEDS: ROBAXIN PO PRN ×2 (01:43→21:59)
[2016-05-29] MEDS: ZOSYN 4.5 GM/NS 100 ML IV SCH ×4 (04:00→22:00)
[2016-05-29 05:52] LABS: HEMATOCRIT 33.2 % (42.0-52.0); MCH 24.3 PG (27-31); MCHC 30.1 g/dL (33-37); MCV 80.6 FL (81-99); MPV 11.6 FL (7.4-10.4); RBC 4.12 XMIL (4.7-6.1)
[2016-05-29] MEDS: PRILOSEC PO SCH (06:06)
[2016-05-29 06:10] LABS: CALCIUM 8.3 mg/dL (8.8-10.2); MAGNESIUM 2.1 mg/dL (1.5-2.7); POTASSIUM 3.7 mmol/L (3.5-5.1); TOTAL BILIRUBIN 0.6 mg/dL (0.20-1.00); TOTAL PROTEIN 6.4 g/dL (6.3-8.3)
[2016-05-29] MEDS: LASIX PO SCH (08:29)
[2016-05-29] MEDS: PRINIVIL PO SCH (08:29)
[2016-05-29] MEDS: XARELTO PO SCH ×2 (08:29→16:20)
[2016-05-29] MEDS: CARDIZEM CD PO SCH (08:29)
[2016-05-29] MEDS: ASPIRIN PO SCH (08:29)
[2016-05-29] MEDS: NORCO-10 PO PRN (08:29)
[2016-05-29] MEDS: CALMOSEPTINE OINTMENT TOP SCH ×3 (08:30→21:59)
[2016-05-29] MEDS: BENADRYL PO PRN (08:31)
[2016-05-29] MEDS: DUONEB (A & A) INH PRN ×3 (08:59→21:27)
[2016-05-29] MEDS: IMODIUM PO PRN (09:18)
--- NOTE | 2016-05-29 11:30 | PROGRESS NOTE ---
DATE: 05/29/2016 SUBJECTIVE: Patient without any new complaints. Continues to complain of back pain, arm pain, shoulder pain, etc. PHYSICAL EXAMINATION: Temperature 98, pulse 82, respiratory 18, BP 135/68, saturation 95% on room air. General: The patient is a morbidly obese male who is currently in no respiratory distress. He is awake, alert, lying in bed as usual. Neck supple. CV: Regular rate. Chest: Relatively clear. Abdomen: Soft. Extremities: Moves all extremities. Neurologic: No focal changes. Abdomen soft, obese. Extremities: Moves all extremities without any issues. 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 ASSESSMENT: 1. Pseudomonas pneumonia. The patient is currently day 16 . 2. Atrial fibrillation. 3. Deep venous thrombosis. Continue Xarelto. 4. Hypertension. 5. Hypokalemia, resolved. 6. Chronic renal failure. 7. Sacral decubitus ulcer. Continue Wound Therapy's recommendations. They re-consulted yesterday. PLAN: We will continue as noted on previous plans. We will continue Zosyn for a total of 21 days. We will continue Wound Therapy's recommendations. We will stop his IV pain medicine and go back to oral pain medication. Continue to follow.
[2016-05-29] MEDS: DESYREL PO SCH (21:59)
[2016-05-30] MEDS: ZOSYN 4.5 GM/NS 100 ML IV SCH ×4 (03:58→20:55)
[2016-05-30] MEDS: NORCO-10 PO PRN ×3 (04:03→20:54)
[2016-05-30] MEDS: PRILOSEC PO SCH ×2 (05:39→06:11)
[2016-05-30] MEDS: LASIX PO SCH (08:04)
[2016-05-30] MEDS: CALMOSEPTINE OINTMENT TOP SCH ×3 (08:04→20:55)
[2016-05-30] MEDS: CARDIZEM CD PO SCH (08:04)
[2016-05-30] MEDS: XARELTO PO SCH ×2 (08:04→16:39)
[2016-05-30] MEDS: ASPIRIN PO SCH (08:04)
[2016-05-30] MEDS: PRINIVIL PO SCH (08:04)
[2016-05-30] MEDS: DUONEB (A & A) INH PRN (08:39)
[2016-05-30] MEDS: BENADRYL PO PRN (10:03)
--- NOTE | 2016-05-30 13:03 | PROGRESS NOTE ---
DATE: 05/30/2016 SUBJECTIVE: Patient without new complaints this morning. States that he is feeling okay. He denies any chest pain or palpitations. OBJECTIVE: Vital Signs: Reviewed. Temperature 98 degrees, pulse 57, respiratory rate 17, BP 112/55. General: Patient is well developed and well nourished. Currently in no real respiratory distress. He is awake, alert. Neck: Supple. Obese male. CV: Regular rate. Chest: Relatively clear. Abdomen: Soft, obese. Labs: No new labs today. We will recheck in the a.m. ASSESSMENT: 1. Pseudomonas pneumonia, currently day 17 . 2. Atrial fibrillation. 3. Deep venous thrombosis. Continue Xarelto. 4. Hypertension. 5. Chronic renal failure, stable. 6. Sacral decubitus ulcer. Continue wound therapy's recommendations. 7. Hypokalemia, resolved. 8. Morbid obesity. PLAN: We will continue wound therapy's recommendations regarding patient's sacral decubitus. His sister is adamant that she has been told that he always needs to use Desitin and that it is the best medication made for wound healing. She is also concerned and has voiced this opinion multiple times that Zosyn is actually causing his wound to not heal. I attempted to discuss with the patient and his sister the reasoning for our current plan. This discussion also had to be had in the past with Devon and her fear of him being on any type of blood thinner. However, as noted in the past, without blood thinner, he has a DVT and that certainly could bring about end of life. We will continue to follow. Continue antibiotics for 4 more days. Then hopefully patient can be discharged back home.
[2016-05-30] MEDS: ROBAXIN PO PRN (20:54)
[2016-05-30] MEDS: DESYREL PO SCH (20:54)
[2016-05-31] MEDS: PRILOSEC PO SCH ×2 (05:33→06:07)
[2016-05-31] MEDS: ZOSYN 4.5 GM/NS 100 ML IV SCH ×4 (05:34→21:24)
[2016-05-31 06:22] LABS: HEMATOCRIT 34.7 % (42.0-52.0); HEMOGLOBIN 10.1 g/dL (14.0-18.0); MCH 23.9 PG (27-31); MCHC 29.1 g/dL (33-37); MPV 11.5 FL (7.4-10.4); RBC 4.23 XMIL (4.7-6.1)
[2016-05-31 06:43] LABS: ALBUMIN 2.9 g/dL (3.5-5.0); CALCIUM 8.5 mg/dL (8.8-10.2); MAGNESIUM 2.1 mg/dL (1.5-2.7); POTASSIUM 4.1 mmol/L (3.5-5.1); TOTAL BILIRUBIN 0.4 mg/dL (0.20-1.00); TOTAL PROTEIN 6.5 g/dL (6.3-8.3)
[2016-05-31] MEDS: DUONEB (A & A) INH PRN ×4 (08:09→19:30)
--- NOTE | 2016-05-31 08:32 | PROGRESS NOTE ---
DATE: 05/31/2016 SUBJECTIVE: Patient without new complaints. Does states that he has a little bit of a cough but this has been problematic for the last several days. PHYSICAL EXAMINATION: Vital Signs: Temperature 98, pulse 71, respiratory rate 18, BP 116/70, weight 350 pounds. General: Patient is an obese male who is currently in no respiratory distress. He is awake, alert. Neck: Supple. CV: Regular rate. Chest: Relatively clear. Abdomen: Soft. Obese. Extremities: Moves the upper extremities well. No use of his lower extremities secondary to previous paralysis. ASSESSMENT: 1. Pseudomonas pneumonia, day 18 of 21 on Zosyn. 2. Acute respiratory failure. Continue oxygen. 3. Atrial fibrillation. Continue Xarelto. 4. Deep venous thrombosis. Continue Xarelto. 5. Paraplegia with decubitus ulcer. 6. Hypertension. Continue lisinopril. 7. Hypokalemia, resolved. 8. Chronic renal failure, stable, serum creatinine 1.4-1.7. 9. Morbid obesity, stable. PLAN: We will continue to follow. We will continue Zosyn until day 21. Hopefully, he will be able to discharge home after that. No other changes were made.
[2016-05-31] MEDS: ASPIRIN PO SCH (08:54)
[2016-05-31] MEDS: CARDIZEM CD PO SCH (08:54)
[2016-05-31] MEDS: CALMOSEPTINE OINTMENT TOP SCH ×3 (08:55→21:24)
[2016-05-31] MEDS: LASIX PO SCH (08:55)
[2016-05-31] MEDS: PRINIVIL PO SCH (08:55)
[2016-05-31] MEDS: XARELTO PO SCH ×2 (08:55→17:28)
[2016-05-31] MEDS ORDERED: CEPACOL SORE THROAT LOZENGE MT PRN (09:42)
[2016-05-31] MEDS: NORCO-10 PO PRN ×2 (14:01→21:23)
[2016-05-31] MEDS: IMODIUM PO PRN (17:56)
[2016-05-31] MEDS: BENADRYL PO PRN (17:56)
[2016-05-31] MEDS: DESYREL PO SCH (21:23)
[2016-05-31] MEDS: ROBAXIN PO PRN (21:24)
[2016-06-01] MEDS: NS 500 ML IV SCH (05:27)
[2016-06-01] MEDS: ZOSYN 4.5 GM/NS 100 ML IV SCH ×4 (05:27→20:59)
[2016-06-01] MEDS: PRILOSEC PO SCH ×2 (05:28→06:27)
[2016-06-01] MEDS: DUONEB (A & A) INH PRN ×2 (08:43→15:47)
[2016-06-01] MEDS: CALMOSEPTINE OINTMENT TOP SCH ×4 (10:43→20:59)
[2016-06-01] MEDS: PRINIVIL PO SCH (10:44)
[2016-06-01] MEDS: CARDIZEM CD PO SCH (10:44)
[2016-06-01] MEDS: XARELTO PO SCH ×2 (10:44→17:00)
[2016-06-01] MEDS: ASPIRIN PO SCH (10:44)
[2016-06-01] MEDS: LASIX PO SCH (10:44)
[2016-06-01] MEDS: NORCO-10 PO PRN (11:07)
--- NOTE | 2016-06-01 15:10 | PROGRESS NOTE ---
DATE: 06/01/2016 SUBJECTIVE: Patient has no focal complaints. OBJECTIVE: Blood pressure 116/68, heart rate is 74, respiratory rate 18, temperature 98.4 degrees, 94% on 3 L.Cardiovascular: Regular rate and rhythm. Pulmonary: Bilateral breath sounds. Clear to auscultation. GI: Soft, nontender, nondistended. Bowel sounds are positive. LABORATORY DATA: None today. Last creatinine was 1.7 which is pretty much at his baseline. PROBLEM LIST: 1. Pseudomonas pneumonia. He is on day 19 of 21 of his antibiotics, so in 2 days he will be safe for discharge. 2. Acute respiratory failure. He is stable. We will need to home O2 evaluation afterwards. 3. Atrial fibrillation. He is on Xarelto and hopefully something for rate control, Cardizem CD 120. 4. Morbid obesity. Continue to follow. 5. History of deep venous thromboses on Xarelto. 6. Paraplegia with chronic sacral decubitus. He is stable. 7. Disposition pending 2 more days of IV antibiotics, then he should be able to go home.
[2016-06-01] MEDS: BENADRYL PO PRN (15:26)
[2016-06-01] MEDS: IMODIUM PO PRN (15:27)
[2016-06-01] MEDS: DESYREL PO SCH (20:59)
[2016-06-02] MEDS: BENADRYL PO PRN ×3 (00:04→19:56)
[2016-06-02] MEDS: IMODIUM PO PRN ×3 (00:04→19:56)
[2016-06-02] MEDS: ZOSYN 4.5 GM/NS 100 ML IV SCH ×4 (03:22→20:00)
[2016-06-02] MEDS: DUONEB (A & A) INH PRN ×3 (03:25→22:33)
[2016-06-02] MEDS: NORCO-10 PO PRN ×2 (06:16→23:40)
[2016-06-02] MEDS: PRILOSEC PO SCH (06:16)
[2016-06-02] MEDS: XARELTO PO SCH ×2 (08:25→17:26)
[2016-06-02] MEDS: CALMOSEPTINE OINTMENT TOP SCH ×4 (08:25→20:00)
[2016-06-02] MEDS: CARDIZEM CD PO SCH (08:25)
[2016-06-02] MEDS: CULTURELLE PO SCH ×3 (08:25→17:26)
[2016-06-02] MEDS: PRINIVIL PO SCH (08:25)
[2016-06-02] MEDS: ASPIRIN PO SCH (08:25)
[2016-06-02] MEDS: LASIX PO SCH (08:25)
--- NOTE | 2016-06-02 19:16 | PROGRESS NOTE ---
DATE: 06/02/2016 SUBJECTIVE: Patient has no focal complaints. OBJECTIVE: Blood pressure 119/70, heart rate of 80, respiratory rate 18, temperature 98.1 degrees, 98% on 2 L.Cardiovascular: Regular rate and rhythm. Pulmonary: Bilateral breath sounds. Clear to auscultation. GI: Soft, nontender, nondistended. Bowel sounds are positive. LABORATORY DATA: None new today. PROBLEM LIST: 1. Pseudomonas pneumonia. He is on antibiotic day . He will complete antibiotics tomorrow. 2. Respiratory failure. He is stable. We will pursue home O2 evaluation tomorrow. 3. Paraplegia. He seems to be doing okay. Continue his issues. 4. Decubitus. Continue wound care and follow. 5. Atrial fibrillation appears to be rate controlled. 6. Disposition. Home on Tuesday which is the 3rd after completion of antibiotics.
[2016-06-02] MEDS: DESYREL PO SCH ×2 (19:56→20:00)
[2016-06-03] MEDS: ZOSYN 4.5 GM/NS 100 ML IV SCH ×4 (03:25→22:33)
[2016-06-03] MEDS: DUONEB (A & A) INH PRN (04:09)
[2016-06-03] MEDS: PRILOSEC PO SCH (06:25)
[2016-06-03] MEDS: CALMOSEPTINE OINTMENT TOP SCH ×3 (09:30→22:34)
[2016-06-03] MEDS: PRINIVIL PO SCH (10:05)
[2016-06-03] MEDS: ROBAXIN PO PRN (10:05)
[2016-06-03] MEDS: LASIX PO SCH (10:05)
[2016-06-03] MEDS: XARELTO PO SCH ×2 (10:06→18:51)
[2016-06-03] MEDS: CARDIZEM CD PO SCH (10:06)
[2016-06-03] MEDS: ASPIRIN PO SCH (10:06)
[2016-06-03] MEDS: CULTURELLE PO SCH ×3 (10:06→18:51)
[2016-06-03] MEDS: BENADRYL PO PRN (14:57)
[2016-06-03] MEDS: QUESTRAN LIGHT PO SCH ×2 (15:00→18:41)
--- NOTE | 2016-06-03 16:18 | PROGRESS NOTE ---
DATE: 06/03/2016 SUBJECTIVE: The patient has no focal complaints. OBJECTIVE: Vital Signs: Blood pressure 137/78, heart rate of 63, respiratory rate 18, temperature 98.3 degrees. Cardiovascular: Regular rate and rhythm. Pulmonary: Bilateral breath sounds. Clear to auscultation. GI: Soft, nontender, nondistended. Bowel sounds are positive. LABORATORY DATA: None new today. PROBLEM LIST: 1. Pseudomonas pneumonia. Today is day 21 of his antibiotics. If he completes them today, he should be able to go tomorrow. 2. Diarrhea. He is having some mucus stools per the nursing, not actual diarrhea. It is probably related to the antibiotics. He has been placed on probiotics, cholestyramine and Imodium. 3. Atrial fibrillation. He is rate controlled on Cardizem and on Xarelto. Appears to be stabilizing. 4. Decubitus. Continue wound care. 5. Disposition: Home tomorrow after he completes his intravenous antibiotics.
[2016-06-03] MEDS: DESYREL PO SCH (22:33)
[2016-06-04] MEDS: NORCO-10 PO PRN (03:19)
[2016-06-04] MEDS: ZOSYN 4.5 GM/NS 100 ML IV SCH ×2 (03:20→09:39)
[2016-06-04] MEDS: QUESTRAN LIGHT PO SCH (06:21)
[2016-06-04 08:58] VITALS: BP 135/68
[2016-06-04] MEDS: ASPIRIN PO SCH (09:38)
[2016-06-04] MEDS: XARELTO PO SCH (09:38)
[2016-06-04] MEDS: LASIX PO SCH (09:38)
[2016-06-04] MEDS: CARDIZEM CD PO SCH (09:38)
[2016-06-04] MEDS: CULTURELLE PO SCH (09:38)
[2016-06-04] MEDS: PRINIVIL PO SCH (09:38)
[2016-06-04] MEDS: PRILOSEC PO SCH (09:38)
[2016-06-04] MEDS: CALMOSEPTINE OINTMENT TOP SCH (09:38)
[2016-06-04] MEDS: IMODIUM PO PRN (15:29)
--- NOTE | 2016-06-05 05:32 | DISCHARGE SUMMARY ---
ADMISSION DATE: 04/30/2016 DISCHARGE DATE: 06/04/2016 DISCHARGE DIAGNOSIS: 1. Morbid obesity. 2. Paraplegia. 3. Pseudomonas pneumonia. 4. Atrial fibrillation with rapid ventricular response. 5. Decubitus ulcer. 6. Chronic constipation. 7. Diastolic heart failure. 8. Acute deep venous thrombosis. 9. Chronic renal failure stage 3. 10. Acute respiratory failure. PROCEDURES: Endotracheal intubation and I think he also had a PICC line placed. CONSULTATIONS: Dr. Carlton Maldonado on the , possible non ST elevation; respiratory failure; Dr. Fontaine, pseudomonas pneumonia. HOSPITAL COURSE: Briefly, the patient admitted on the per, I believe, Dr. Cordoba for decubitus ulcers. He was placed on Levaquin and vancomycin. He is felt to be chronically colonized with Proteus and Pseudomonas and was not given antibiotics. The patient slowly clinically evaluated. He did develop some desaturation. There were some attempts to pursue LTAC but he did not qualify for that. He developed an unresponsive episode at 1. He was hypercapnic. Heart rate jumped into the 120s. Found to be in atrial fibrillation with rapid ventricular response. He did not respond to Narcan. He was eventually intubated. He had to be sedated. He was placed on Sarbjit-Synephrine and he was transferred to the unit for further evaluation. His CO2 improved. He did develop a left lower extremity DVT for which he was anticoagulated. He had a mild bump in his troponins which was felt to be associated with RVR and shock. He never underwent CPR, defibrillation. Adjustments were made in his medications and he was extubated. He wanted to have a CT of the chest to evaluate for other issues and he was switched to heparin and then Lovenox and then he will be discharged on Eliquis. Unfortunately, he was too overweight for a V/Q scan and his renal insufficiency prevented us from getting a CT angiogram, but he was anticoagulated regardless. Clinically improved. He was eventually extubated and stabilized. He did develop Pseudomonas from his sputum and therefore was consulted on by Dr. Fontaine. He recommended 3 weeks of IV antibiotics. That was on the so he was switched to Zosyn. I think he may have already been on that and he clinically improved. He was pretty much maintained on IV antibiotics here because with his Medicaid status there was no one to [facility] home health therapy and home IV therapies would not participate in his care if home health was not set up. Because of his Medicaid status, he did not have any rehab benefits to go to rehab so essentially he completed his IV antibiotics here. Course was really unremarkable. He continued to improve. He did develop some diarrhea prior to his release but he has had a couple C. difficile tests that were both negative, one on the and actually one on the . DISCHARGE CONDITION: Stable. DISCHARGE MEDICATIONS: [place] 1 p.o. t.i.d., Robaxin 750 t.i.d., Desyrel 100 at bedtime, Klor-Con 8 daily, DuoNebs q.4, Cardizem CD was 120 daily, Lasix 40 daily, Prilosec 20 daily and Xarelto 20 daily. He has completed his loading course here. TIME: 35 minute discharge.
== END 2016-06-04 15:50 | disposition home health service (06) | DRG 602 ==
LOC: P.ED 15:05 → P.MEDSURG 17:25 → P.ICU 05-05 12:48 → P.MEDSURG 05-08 12:59
PROVIDERS: ATTEND Internal Medicine
PROC: 5A1945Z Respiratory Ventilation, 24-96 Consecutive Hours (ICD-10-PCS; principal; 2016-05-05)
PROC: 0BH17EZ Insertion of Endotracheal Airway into Trachea, Via Natural or Artificial Opening (ICD-10-PCS; 2016-05-05)
PROC: 02HV33Z Insertion of Infusion Device into Superior Vena Cava, Percutaneous Approach (ICD-10-PCS; 2016-05-14)
DX: L03.312 Cellulitis of back [any part except buttock and flank] (principal); I26.99 Other pulmonary embolism without acute cor pulmonale; I50.33 Acute on chronic diastolic (congestive) heart failure; J96.02 Acute respiratory failure with hypercapnia; J96.01 Acute respiratory failure with hypoxia; J15.1 Pneumonia due to Pseudomonas; I13.0 Hypertensive heart and chronic kidney disease with heart failure and stage 1 through stage 4 chronic kidney disease, or unspecified chronic kidney disease; E87.2 Acidosis; J44.0 Chronic obstructive pulmonary disease with (acute) lower respiratory infection; E66.2 Morbid (severe) obesity with alveolar hypoventilation; I82.412 Acute embolism and thrombosis of left femoral vein; G82.20 Paraplegia, unspecified; T83.518A Infection and inflammatory reaction due to other urinary catheter, initial encounter; Z68.42 Body mass index [BMI] 45.0-49.9, adult; L89.152 Pressure ulcer of sacral region, stage 2; N18.3 Chronic kidney disease, stage 3 (moderate); G35 Multiple sclerosis; I48.91 Unspecified atrial fibrillation; Z79.891 Long term (current) use of opiate analgesic; Z79.899 Other long term (current) drug therapy; I25.2 Old myocardial infarction; J44.9 Chronic obstructive pulmonary disease, unspecified; Z86.718 Personal history of other venous thrombosis and embolism; N31.9 Neuromuscular dysfunction of bladder, unspecified; Z87.442 Personal history of urinary calculi; Z93.6 Other artificial openings of urinary tract status; K59.09 Other constipation; E87.6 Hypokalemia; R19.7 Diarrhea, unspecified; Z98.1 Arthrodesis status
CPT/HCPCS: 31500; 36415; 36569; 70450; 71010; 71250; 80048; 80053; 80202; 81001; 82550; 82805; 82948; 83605; 83735; 83880; 84443; 84484; 85025; 85027; 85379; 85610; 85730; 87040; 87070; 87077; 87088; 87186; 87205; 87324; 89220; 93005; 93010; 93306; 93970; 94002; 94003; 94150; 94640; 94761; 94799; 96365; 96366; C9113; J0330; J0692; J1170; J1200; J1644; J1650; J1940; J2060; J2310; J2370; J2405; J2543; J2930; J3370; J3480; J7030; J7040; J7050; S0164